=== PATIENT | male | born 1950 | race Two or more races ===

== ENCOUNTER 2024-12-01 00:48 | Inpatient (IN) | payer OTHER ==
[~2024-12-01] VITALS: Ht 177.8 cm; Wt 103.8 kg
[2024-12-01] VITALS (81 sets, daily range): BP systolic 73–150; BP diastolic 8–90; PULSE 85–143; RESP 10–34; TEMP 97–107.4; O2SAT 76–100
[2024-12-01] MEDS: SODIUM CHLORIDE 0.9% 1,000 ML IV ONE ×3 (00:04→14:44)
--- NOTE | 2024-12-01 01:11 | ED.PDOC ---
History of Present Illness HPI Comments 74 y/o M is BIBA for cardiac arrest, today. Per EMS report, staff, initially, received a call from patient's spouse after he became altered, earlier, this morning, and fell from the bed when attempted to be moved and taken to the hospital. EMS staff notes on patient having agonal breathing, hypotensive at 90 /63, and bradycardic at a rate of 58, with a blood glucose of 227, initially, on scene. En route, patient's condition was then commented to have deteriorate and had a witnessed arrest when he went into asystole at 0037. CPR was stated to have been initiated, immediately, in addition to I/O access placed along with 2x epinephrine shots administered. Upon arrival to ED at 0047, patient's total down time was stated to have been 10x minutes, with last epinephrine given at 0045. Care was resumed by ED staff. Further history cannot be obtained, due to patient's condition and absence of additional historians at time of arrival. Chief Complaint: CPR Time Seen by MD: 00:47 Reviewed Notes: Nurses Notes, Medications, Allergies Allergies: Coded Allergies: NO KNOWN ALLERGIES (Unverified , 12/01/24) Information Source: Patient Mode of Arrival: EMS Severity: Moderate Timing: Hours Duration: Since onset Prehospital treatment: None Past Medical History PAST MEDICAL HISTORY: CHF, COPD, HTN Past Medical History (Other): morbid obesity Surgical History: Denies all surgeries Family History Family History: Unknown Social History Smoker: Non-Smoker Alcohol: Denies ETOH Use Drugs: Denies Drug Use Lives In: Home Cardiovascular: reports: others (cardiac arrest) All Other Systems: Reviewed and Negative (negative unless otherwise stated above or in HPI) Physical Exam General Appearance: Obese, Severe Distress HEENT: Normal ENT Inspection, Pharynx Normal, TMs Normal Neck: Full Range of Motion, Non-Tender, Normal, Normal Inspection Respiratory: Chest Non-Tender, Lungs Clear, No Accessory Muscle Use, No Respiratory Distress, Normal Breath Sounds Cardiovascular: No Edema, No JVD, No Murmur, No Gallop, Normal Peripheral Pulses, Regular Rate/Rhythm Breast Exam: Deferred Gastrointestinal: No Organomegaly, Non Tender, No Pulsatile Mass, Normal Bowel Sounds, Soft Genitalia: Deferred Pelvic: Deferred Rectal: Deferred Extremities: No calf tenderness, Normal capillary refill, Normal inspection, Normal range of motion, Non-tender, No pedal edema Musculoskeletal : Apperance: Normal 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 Was a procedure done?: No Differential Dx Considerations may include: cardiopulmonary arrest, respiratory arrest X-Ray, Labs, Meds, VS Vital Signs Date Time Temp Pulse Resp B/P (MAP) Pulse Ox O2 Delivery O2 Flow Rate FiO2 12/01/24 01:41 131 28 162/102 (122) 100 80 12/01/24 01:07 107 12/01/24 00:55 101.5 0 0 0/0 (0) 0 Lab Test 12/01/24 01:09 12/01/24 00:50 Range/Units Blood Gas Specimen Type Arterial Blood Gas Sample Site Left radial Blood Gas Patient Temperature 37.0 Arterial Blood Date Drawn [id number] Arterial Blood pH 6.984 *L 7.350-7.450 Arterial Blood Partial Pressure CO2 80.2 *H 35.0-48.0 mmHg Arterial Blood Partial Pressure O2 411.9 *H 83.0-108.0 mmHg Arterial Blood HCO3 18.6 L 21.0-28.0 mmol/L Arterial Blood Oxygen Saturation 99.8 H 94.0-98.0 % Arterial Blood Base Excess -15.0 L -2.0-3.0 mmol/L Arterial Blood Oxyhemoglobin 96.4 94.0-98.0 % Arterial Blood Carboxyhemoglobin 2.5 H 0.5-1.5 % Arterial Blood Methemoglobin 0.9 0.0-1.5 % Amari Test Modified Blood Gas Total Hemoglobin 17.60 H 13.5-17.5 g/dL Blood Gas Set Respiration Rate 20.0 Blood Gas Modality Vent - ac FiO2 % 100.0 Blood Gas Tidal Volume 500.0 Blood Gas PEEP or CPAP 8.0 Blood Gas Critical Value Read Back Yes Blood Gas Notified Whom Dr. jessenia dominguez Blood Gas Notified Time [id number] Blood Gas Notified By Rt tita lehman White Blood Count Pending Red Blood Count Pending Hemoglobin Pending Hematocrit Pending Mean Corpuscular Volume Pending Mean Corpuscular Hemoglobin Pending Mean Corpuscular Hemoglobin Concent Pending Red Cell Distribution Width Pending Platelet Count Pending Mean Platelet Volume Pending Neutrophils (%) (Auto) Pending Lymphocytes (%) (Auto) Pending Monocytes (%) (Auto) Pending Basophils (%) (Auto) Pending Neutrophils # (Auto) Pending Lymphocytes # (Auto) Pending Monocytes # (Auto) Pending Lactic Acid Level Pending The patient was intubated in right femoral central S. NG tube was also placed. Chest x-ray is pending. See run sheet for further information. Levophed drip was placed while the patient was hydrated. Chest x-ray is pending. Patient had a elevated temperature and was given Rocephin and ofirm, with septic protocol. The patient will be admitted to the hospitalist for further evaluation and care. Time of 1ST Reevaluation: 01:17 Reevaluation 1ST: Unchanged Patient Education/Counseling: Pt Unresponsive Family Education/Counseling: No Family Present Departure 1 Departure Time of Disposition: 01:58 Impression: Primary Impression: Acute hypoxic respiratory failure Additional Impressions: COPD exacerbation CO2 retention Disposition: ADMITTED INPATIENT Admit to: ICU Condition: Critical Critical Care Note Critical Care Time?: Yes (45 min-critical care time only) Stability Stability form required: No I personally scribed for JOSE A DOMINGUEZ MD ([email or web address]) on 12/01/24 at 01:11. Electronically submitted by Hai Watt ([email or web address]). JOSE A DOMINGUEZ MD Dec 01, 2024 01:11
--- NOTE | 2024-12-01 01:29 | ECG ---
[facility] Test Date: 2024-12-01 Test Time: 01:07:51 Pat Name: EVENS HARGROVE Department: ER Room: [address] [place] [address] Gender: M Mason [employer]ender [employer]: CHELSI : 1950 Requested By: JOSE A DOMINGUEZ Order Number: [id number] Reading MD: Sky Duron Measurements Intervals [place] Rate: 107 P: 0 CA: 0 QRS: -122 QRSD: 156 T: 67 QT: 387 QTc: 517 Interpretive Statements Atrial fibrillation Right bundle branch block Electronically Signed On 12-01-2024 13:32:17 PST by Sky Duron Please click the below link to view image of tracing.
[2024-12-01 01:52] LABS: Basophils # (auto) 0.1 10 ^3/uL (0-0.2); Eosinophils # (auto) 0 10 ^3/uL (0-0.8); Lymphocytes # (auto) 1.2 10 ^3/uL (0.4-5.4); Monocytes # (auto) 1.7 10 ^3/uL (0-1.3); Nucleated Red Blood Cells % 0.5 %
[2024-12-01 01:55] LABS: Basophils % (auto) 1.1 % (0.0-2.0); Eosinophils % (auto) 0.3 % (0.0-7.0); Lymphocytes % (auto) 9.2 % (10.0-50.0); Mean Corpuscular Hemoglobin 34.8 pg (28.0-32.0); Mean Corpuscular Hgb Conc. 32.8 g/dL (32.0-36.0); Mean Corpuscular Volume 106.1 fL (80.0-100.0); Monocytes % (auto) 12.9 % (0.0-12.0); Neutrophils % (auto) 76.5 % (37.0-80.0); Platelet Count (auto) 279 10^3/uL (140-450); Red Cell Distribution Width 15.7 % (11.8-14.3); White Blood Cell 13.1 10^3/uL (4.4-10.8)
[2024-12-01] MEDS: SODIUM CHLORIDE 0.9% 2,200 ML IV ONE (02:00)
[2024-12-01] MEDS: ACETAMINOPHEN IV 1000 MG/100ML (10MG/ML) IV ONE ×2 (02:05→13:48)
--- NOTE | 2024-12-01 02:05 | RESUS ---
CODE BLUE ASSESSSMENT History of Events History of Events: 74 y/o M is BIBA for cardiac arrest, today. Per EMS report, staff, initially, received a call from patient's spouse after he became altered, earlier, this morning, and fell from the bed when attempted to be moved and taken to the hospital. EMS staff notes on patient having agonal breathing, hypotensive at 90/63, and bradycardic at a rate of 58, with a blood glucose of 227, initially, on scene. En route, patient's condition was then commented to have deteriorate and had a witnessed arrest when he went into asystole at 0037. CPR was stated to have been initiated, immediately, in addition to I/O access placed along with 2x epinephrine shots administered. Upon arrival to ED at 0047, patient's total down time was stated to have been 10x minutes, with last epinephrine given at 0045. Care was resumed by ED staff. Initial Information Date: Dec 01, 2024 Time: 00:47 Location of Arrest: ER Arrest Witnessed: Yes CPR started initial time: 00:37 CPR started by whom: EMS Pre-Hospital Care: ACLS Type of arrest: Cardiac, Respiratory, Adult, Witnessed Spontaneous Respirations: No Pulse Present: No Monitoring: ECG, Pulse Oximetry, Apnea, Telemetry Crash Cart Opened and Supplies: Yes Airway Ventilation Breathing at Onset: Apneic O2 Sat by Pulse Oximetry: 0 Oxygen Delivery Method: Ambu-Bag Time of first Assisted Ventila: 00:48 Artificial Ventilation: Bag/Endo tube Intubation Size: 8.0 cuffed Intubation Attempts: 1 Intubated orally: Yes Intubated Nasaly: No Cricoid pressure done: No CO2 indicator used: Yes Confirmation: Auscultation, Exhaled CO2 Suctioning (Oral/Tracheal): No Circulation Circulation : Time: 00:47 Pulse Rate (adult): 0 Blood Pressure Systolic: 0 Blood Pressure Diastolic: 0 Temperature (Fahrenheit): 101.5 Procedure - IV Procedure - IV #1: IV start time: 00:48 IV Side: Left IV Location: Forearm Anterior IV Catheter Type: Saline Lock IV Placed: In Hospital IV Gauge: 18 IV Line Care: Saline Flush Procedure - IV #2: IV start time: 00:49 IV Side: Right IV Location: Wrist IV Catheter Type: Saline Lock IV Gauge: 20 IV Line Care: Saline Flush Procedure - Intraosseous Site of Intraosseous: Tibia selina-medial Intraosseous inserted by: BY EMS Medications & Response Medications and Responses : Medication Time: 00:49 ADULT Medications Given ADULT: Epinephrine 1 mg Route of Administration: IV Heart Rate: 0 EKG Rhythm: PEA Blood Pressure Systolic: 0 Blood Pressure Diastolic: 0 Respiratory Rate: 0 O2 Sat by Pulse Oximetry: 0 EKG Rhythm: PEA Comment PULSE CHECK AT 0052 ROSC PT GIVEN NA BICARB 1 AMP AND CALCIUM CHLORIDE 1 AMP VS 163/94 HR 149 SAO2 97 Pacing Pacer Pads Applied and Pacing: Yes Nurses Notes Iván Coma Scale Eye Opening: None (1) Iván Coma Scale Verbal: None (1) [place] Coma Scale Motor: None (1) Pupil Reaction: Non Reactive Bedside Blood Glucose: 256 EKG Rhythm: Sinus Tachycardia Time Code Ended Time Code Ended: 00:52 Post Arrest Status: Ventilated Outcome of code: Successful Code Team Present: KHLOE PAPPAS RN HS, ROCÍO AUDIT ASSOCIATE, VÍCTOR RN, AUDREY RN, WILVER RN, ROBINSON ERT, NEGRO ERT, MIKE RT, LIZZETH RT Post Resuscitation Neurologica Pupil Size: 3 ROSC Pt Meets Criteria for Therapeu: Yes (0rdered at 0223) Therapeutic Hyperthermia Start: No KHLOE RICK Dec 01, 2024 02:05
[2024-12-01 02:10] LABS: Lactic Acid w/Reflex 11.4 mmol/L (0.4-2.0)
[2024-12-01] MEDS: VANCOMYCIN 1GM/250ML KIT 250 ML IV ONE ×2 (02:18→06:19)
[2024-12-01] MEDS: PIPERACILLIN-TAZOB 2.25GM 50 ML IV ONE (02:18)
[2024-12-01 02:21] LABS: Alanine Aminotransferase 26 U/L (7-40); Anion Gap 14 (5-15); Bilirubin, Total 0.6 mg/dL (0.2-1.0); Blood Urea Nitrogen 9 mg/dL (9-23); Calcium 9.4 mg/dL (8.7-10.4); Carbon Dioxide 21 mmol/L (20-31); Potassium 4.6 mmol/L (3.5-5.1); Total Protein 6.8 g/dL (5.7-8.2)
[2024-12-01 02:29] LABS: Urine Amorphous Crystal FEW /hpf (None Seen); Urine Bacteria FEW /hpf (None Seen); Urine Blood 2+ /uL (Negative); Urine Clarity Turbid (Clear); Urine Color Light-Orange (Yellow); Urine Hyaline Cast FEW /lpf (0 - 2); Urine Protein, UAD 3+ (Negative); Urine Specific Gravity 1.013 (1.001-1.035); Urine Sperm PRESENT /hpf (None Seen); Urine Squamous Epithelial Cell FEW /hpf (<5); Urine Urobilinogen Normal (Negative); Urine WBC 62 /HPF (0-3)
[2024-12-01 02:29] LABS: Alkaline Phosphatase 132 U/L (46-116); Aspartate Aminotransferase 45 U/L (13-40); Chloride 94 mmol/L (98-107); Glucose 220 mg/dL (74-106); Sodium 129 mmol/L (136-145)
[2024-12-01] MEDS: IOHEXOL 350 MG/ML 100ML IJ ONE (02:35)
[2024-12-01] MEDS: MIDAZOLAM DRIP 50 mg/50mL 50 ML IV ONE (02:42)
[2024-12-01] MEDS: MIDAZOLAM DRIP 50 mg/50mL 50 ML IV SCH (02:43)
[2024-12-01 03:08] LABS: Base Excess -6.6 mmol/L (-2.0-3.0)
[2024-12-01] MEDS: SODIUM BICARB 8.4% 50Meq/50ml SYR Vial IV ONE (03:12)
--- NOTE | 2024-12-01 03:20 | DVH ---
CT HEAD WITHOUT CONTRAST INDICATION: resp arrest COMPARISON: None TECHNIQUE: CT of the head without intravenous contrast. RADIATION DOSE: CTDIvol: 69.24 mGy, DLP: 3401.41 mGy*cm FINDINGS: There is no evidence of acute intracranial hemorrhage, extra-axial collection, mass effect, midline s hift, herniation or hydrocephalus. The ventricles, sulci and cisterns are age appropriate. The oh -white differentiation is intact. Patchy mucosal thickening and opacities noted within visualized pa ranasal sinuses. The surrounding soft tissues and osseous structures are unremarkable. Endotracheal and orogastric catheters are incompletely imaged. IMPRESSION: 1. No evidence of acute intracranial hemorrhage, mass effect or hydrocephalus.
--- NOTE | 2024-12-01 04:24 | DVH ---
CHEST RADIOGRAPH Indication: POST INTUBATION Technique: Single frontal view of the chest was obtained Comparison: None FINDINGS: Lines and Tubes: Endotracheal tube terminates 7.0 cm above the tristin. The enteric tube courses below the left hemidiaphragm and the tip extends outside the field of view. Lungs: Hazy bilateral opacities noted. Pleura: No effusion. No pneumothorax. Cardiomediastinal contours: Unremarkable Bones: No acute osseous abnormality. IMPRESSION: 1. Hazy bilateral opacities which may reflect pneumonia or edema.
[2024-12-01] MEDS: dilTIAZem 25 MG/5 ML VIAL IV ONE (04:27)
--- NOTE | 2024-12-01 05:01 | DVH ---
Exam: CT CT CHEST/AB/PL W CON- IV ONLY History: ANGIO CHEST WITH ABD PEL // RESPIRATORY ARREST Comparison Study: None available at time of dictation. Technique: Multidetector CT of the chest, abdomen and pelvis was performed from lower neck to pubic s ymphysis. Intravenous contrast was administered during this examination. Axial, coronal and sagittal multiplanar reformats were performed by the technologist on a separate workstation. Radiation Dose Information: CT Dose: CTDI volume is 25 mGy. Dose-length product is 250 mGy*cm Findings: Lower neck: ENDOTRACHEAL TUBE TIP ABOVE THE REZA. Lungs: BIBASILAR ATELECTASIS. Tree-in-bud nodular opacities throughout the lungs, which could be seco ndary to infectious or inflammatory process. Heart/Vascular Structures: Lymph Nodes: No adenopathy Pleura: Trace left pneumothorax. Liver: The liver is normal in size. No focal lesions. Normal hepatic vascular enhancement. Gallbladder and Biliary Tree: Unremarkable Spleen: Unremarkable Pancreas: The pancreas is normal in appearance without focal lesions or abnormal enhancement. Adrenal Glands: Unremarkable Kidneys: Kidneys demonstrate normal symmetric enhancement without focal lesions, calculi or hydroneph rosis. Bladder: Unremarkable Bowel: Nasogastric tube tip in the stomach. Small bowel and colon are normal in caliber and distribut ion. The appendix is not visualized; however, no secondary findings of acute appendicitis identified . Ascites: Absent Lymphadenopathy: No mesenteric, retroperitoneal or periportal lymphadenopathy. Abdominal Wall and Mesentery: Abdominal aortic aneurysm infrarenal measuring 5 cm. Right common femor al central venous catheter present. Vasculature: The visualized abdominal aorta is normal in size and caliber. Abdominal and pelvic vess els demonstrate normal enhancement. Pelvic Organs: Unremarkable Musculoskeletal: Multiple rib fractures are noted involving the left 2nd 3rd 4th ribs. IMPRESSION: Abdominal aortic aneurysm infrarenal measuring 5 cm. Tree-in-bud nodular opacities throughout the lungs, which could be secondary to infectious or inflamm atory process. Trace left pneumothorax. Multiple rib fractures are noted involving the left 2nd 3rd 4th ribs. Critical Result: Pneumothorax Findings discussed with JOSE A DOMINGUEZ at 12/01/2024 04:57 AM, and acknowledged receipt and understan ding of the findings. .. All CT scans at this medical facility are performed using dose modulation techniques as appropriate t o a performed exam including the following: Automated exposure control was utilized; adjustment of th e MA and/or KV according to patient size; and use of iterative reconstruction technique.
[2024-12-01] MEDS ORDERED: VANCOMYCIN PER PHARMACY 0 MG IV SCH (06:00)
[2024-12-01] MEDS ORDERED: METOPROLOL TARTRATE 1MG/1ML-5ML VIAL IV PRN (06:15)
[2024-12-01] MEDS: methylPREDNISolone SOD SUCC 40 MG/ML VL IV SCH (06:20)
[2024-12-01] MEDS: PANTOPRAZOLE 40 MG/10 ML VIAL INJ IV ONE (06:21)
[2024-12-01 06:22] LABS: Eosinophils # (auto) 0 10 ^3/uL (0-0.8); Hemoglobin 18.1 g/dL (13.5-17.5); Lymphocytes # (auto) 0.5 10 ^3/uL (0.4-5.4); Neutrophils # (auto) 17.1 10 ^3/uL (1.6-8.6)
[2024-12-01 06:27] LABS: Basophils # (auto) 0.2 10 ^3/uL (0-0.2); Basophils % (auto) 1.2 % (0.0-2.0); Lymphocytes % (auto) 2.4 % (10.0-50.0); Mean Corpuscular Hgb Conc. 33.5 g/dL (32.0-36.0); Mean Corpuscular Volume 101.6 fL (80.0-100.0); Monocytes # (auto) 1.9 10 ^3/uL (0-1.3); Monocytes % (auto) 9.8 % (0.0-12.0); Neutrophils % (auto) 86.6 % (37.0-80.0); Platelet Count (auto) 290 10^3/uL (140-450); Red Blood Cells 5.32 10^6/uL (4.5-5.90); Red Cell Distribution Width 15.1 % (11.8-14.3); White Blood Cell 19.7 10^3/uL (4.4-10.8)
[2024-12-01 06:39] LABS: INR 1.35 (0.9-1.15); Lactic Acid w/Reflex 5.4 mmol/L (0.4-2.0); Prothrombin Time 13.9 sec (9.3-11.8)
--- NOTE | 2024-12-01 06:40 | DVHHP2 ---
Admitting Diagnosis: Cardiac Arrest, Acute respiratory failure with hypercapnea, Pneumonia, GI Bleed, metabolic encephalopathy History of Present Illness History Source: RN Notes, MD Notes Exam Limitations: Clinical condition HPI Mr. Maxim Mcintosh is a 74 year old male who presents with status post cardiac arrest en route in ambulance, yesterday. Limited HPI due to patient clinical condition, Per ED notes, "Per EMS report, staff, initially, received a call from patient's spouse after he became altered, earlier, this morning, and fell from the bed when attempted to be moved and taken to the hospital. EMS staff notes on patient having agonal breathing, hypotensive at 90/63, and bradycardic at a rate of 58, with a blood glucose of 227, initially, on scene. En route, patient's condition was then commented to have deteriorate and had a witnessed arrest when he went into asystole at 0037. CPR was stated to have been initiated, immediately, in addition to I/O access placed along with 2x epinephrine shots administered. Upon arrival to ED at 0047, patient's total down time was stated to have been 10x minutes, with last epinephrine given at 0045. Care was resumed by ED staff." Patient admitted for further evaluation. Past Medical History Cardiac: No pertinent Hx Pulmonary: COPD Central Nervous System: No pertinent Hx GI: No pertinent Hx Hemotology/Oncology: No pertinent Hx Hepatobiliary: No pertinent Hx Psychiatric: No pertinent Hx Musculoskeletal: No pertinent Hx Rheumotologic: No pertinent Hx Infectious Disease: No peritnent Hx ENT: No pertinent Hx Renal/: No pertinent Hx Endocrine: No pertinent Hx Dermatology: No pertinent Hx Others morbid obesity, AAA per CT scan Review of Systems Comments unable to perform ROS due to patient critical clinical condition H&P Exam Vital Signs Vital Signs Date Time Temp Pulse Resp B/P (MAP) Pulse Ox O2 Delivery O2 Flow Rate FiO2 12/01/24 04:15 99.3 147 29 142/91 (108) 95 99.3 12/01/24 03:52 40 12/01/24 02:05 Ambu-Bag General Appeara: Other (Ill appearing , morbid obesity, intubated ) Head Exam: Normal inspection Neck Exam: Normal inspection Eye Exam: bilateral eye Abnormal pupil (fixed +3 ) Ear Exam: bilateral ear Auricle normal Nasal Exam: Normal inspection, Other (NGT ) Mouth: Normal Inspection (ETT tube) Pulmonary/Respiratory: Wheezing, Other (intubated) Cardiovascular/Chest: Tachycardia, Irregularly irregular Peripheral Pulses: 2+ dorsalis pedis (R), 2+ dorsalis pedis (L), 2+ Radial (R), 2+ Radial (L) Abdominal Exam: Other (distended , hypoactive bowel sounds, NGT output dark red ) 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: Other (pupils fixed +3 , intubated on no sedation) Neuro/Mental St: Unresponsive Appearance: Other (ill appearing) Eye contact/ Speech: Other (intubated , unresponsive ) Thoughts/Psych: Other (intubated) Skin Exam: Normal inspection, Normal color, Warm/dry Labs/Xrays Labs Test 12/01/24 05:59 12/01/24 03:02 12/01/24 01:52 12/01/24 01:50 Range/Units Blood Gas Specimen Type Arterial Blood Gas Sample Site Left radial Blood Gas Patient Temperature 37.0 Arterial Blood Date Drawn [id number] Arterial Blood pH 7.167 *L 7.350-7.450 Arterial Blood Partial Pressure CO2 66.8 *H 35.0-48.0 mmHg Arterial Blood Partial Pressure O2 292.6 H 83.0-108.0 mmHg Arterial Blood HCO3 23.7 21.0-28.0 mmol/L Arterial Blood Oxygen Saturation 99.8 H 94.0-98.0 % Arterial Blood Base Excess -6.6 L -2.0-3.0 mmol/L Arterial Blood Oxyhemoglobin 96.8 94.0-98.0 % Arterial Blood Carboxyhemoglobin 2.1 H 0.5-1.5 % Arterial Blood Methemoglobin 0.9 0.0-1.5 % Amari Test Modified Blood Gas Total Hemoglobin 17.60 H 13.5-17.5 g/dL Blood Gas Set Respiration Rate 28.0 Blood Gas Modality Vent - ac FiO2 % 80.0 Blood Gas Tidal Volume 500.0 Blood Gas PEEP or CPAP 5.0 Blood Gas Critical Value Read Back Yes Blood Gas Notified Whom Dr. jessenia estrada Blood Gas Notified Time [id number] Blood Gas Notified By Rt tita lehman Total Bilirubin 0.6 0.2-1.0 mg/dL Aspartate Amino Transferase (AST) 45 H 13-40 U/L Alanine Aminotransferase (ALT) 26 7-40 U/L Alkaline Phosphatase 132 H 46-116 U/L Total Protein 6.8 5.7-8.2 g/dL Albumin 4.0 3.2-4.8 g/dL Urine Color Light-orange Yellow Urine Clarity Turbid H Clear Urine pH 6.0 5.0-9.0 Urine Specific [place] 1.013 1.001-1.035 Urine Protein 3+ H Negative Urine Ketones 1+ H Negative Urine Blood 2+ H Negative /uL Urine Nitrite Negative Negative Urine Bilirubin Negative Negative Urine Urobilinogen Normal Negative mg/dL Urine Leukocyte Esterase Negative Negative /uL Urine RBC 20 0 - 3 /hpf Urine Microscopic WBC 62 H 0-3 /HPF Urine Squamous Epithelial Cells Few <5 /hpf Urine Amorphous Crystals Few None Seen /hpf Urine Bacteria Few H None Seen /hpf Urine Hyaline Casts Few 0 - 2 /lpf Urine Sperm Present None Seen /hpf Urine Glucose Trace Normal mg/dL Test 12/01/24 00:50 Range/Units Eosinophils (%) (Auto) 0.3 0.0-7.0 % Eosinophils # (Auto) 0 0-0.8 10 ^3/uL Basophils # (Auto) 0.1 0-0.2 10 ^3/uL Nucleated Red Blood Cells 0.5 % Assessment/Plan Problem List: (1) Acute respiratory failure with hypercapnia (2) Pneumonia (3) Pneumothorax (4) AAA (abdominal aortic aneurysm) (5) New onset a-fib (6) Elevated troponin Plan This is a 74 yo male with known history of COPD who presents to the hospital status post cardiac arrest with acute respiratory failure, CPR was performed en route to the hospital and patient was intubated. Patient found to have 1. Acute respiratory failure with hypercapnea 2. Pneumonia 3. trace pneumothorax 4. Metabolic encephalopathy 5. GI Bleed 6. Elevated troponin 7. Atrial fibrillation with RVR 8. AAA measuring 5.0 cm 9. Lactic acidosis 10, Fractured ribs Plan Admit ICU Pulmonology consultation, ABG, CXR, IV antibiotics, Duo Neb Treatment, IV steroid, sputum culture Neurology consultation Gastroenterology consultation, Protonix drip, stool occult blood, NGT LIS Cardiology consultation , 2D echocardiogram, serial troponin levels IV fluids NS serial lactic acid levels, Blood cultures x2, urine culture monitor H&H levels, CBC, BMP Discussed care plan with patient nurse Radha LING. Discussed assessment and care plan with supervising MD. Patient is seen and evaluated by me in the afternoon and discussed with family at bedside regarding care plan. Patient is seen and evaluated and admitted by nurse practitioner manager call. I agree with her evaluation, documentation, assessment and care plan as outlined. Plan discussed with: Other Code Visit Code Visit Total Time (mins): 45 MARK SANDERS Dec 01, 2024 06:40 NIGHAT BOX MD Dec 03, 2024 10:49
[2024-12-01] MEDS: IPRATROPIUM BROM 0.5 MG/2.5ML INH SOL NEB SCH (07:00)
[2024-12-01 07:03] LABS: Base Excess 0.6 mmol/L (-2.0-3.0)
[2024-12-01 07:26] LABS: Potassium 3.8 mmol/L (3.5-5.1)
[2024-12-01 07:27] LABS: Anion Gap 15 (5-15); Carbon Dioxide 23 mmol/L (20-31)
[2024-12-01 07:28] LABS: Calcium 8.7 mg/dL (8.7-10.4)
[2024-12-01 07:32] LABS: BUN/Creatinine Ratio 11.2 (10.0-20.0); Blood Urea Nitrogen 10 mg/dL (9-23)
[2024-12-01 07:51] LABS: Chloride 95 mmol/L (98-107); Glucose 216 mg/dL (74-106); Sodium 133 mmol/L (136-145)
[2024-12-01] MEDS: PANTOPRAZOLE 80 MG in SODIUM CHL 0.9% 100 ML IV ONE (08:09)
[2024-12-01] MEDS: ACETAMINOPHEN 650 MG RECT SUPP PR PRN (08:14)
[2024-12-01] MEDS: PANTOPRAZOLE 40mg/50ML NS AE 50 ML IV ONE (09:10)
[2024-12-01] MEDS: PIPERACILLIN-TAZOB 3.375GM 100 ML IV SCH (11:09)
[2024-12-01] MEDS ORDERED: ACETAMINOPHEN 650 mg PER 20.3 mL UD PO PRN (11:30)
[2024-12-01] MEDS: ACETAMINOPHEN IV 100 ML IV ONE (11:44)
[2024-12-01] MEDS: IBUPROFEN 100MG/5ML ORAL SUSP 100 MG/5 ML UD GT PRN (11:44)
[2024-12-01 12:05] LABS: Hematocrit 53.6 % (41.0-53.0); Hemoglobin 17.9 g/dL (13.5-17.5)
--- NOTE | 2024-12-01 12:21 | DVHINCON2 ---
Date Seen: Dec 01, 2024 Referring Physician KORIN Ortega Reason for Consultation Cardiac arrest History of Present Illness This is a 74-year-old man who presented to the emergency room via EMS with a chief complaint cardiopulmonary arrest earlier today. At time of assessment, the patient was found chemically sedated, mechanically ventilated, and off vasopressors. Information obtained from records which indicate the patient's called 911 reported ALOC with EMS arriving and found in the patient with agonal breathing and hypotensive with a systolic blood pressure in the 90s mmHg, HR of 50s bpm, and BGL in the 200s ng/dL. En route to the hospital the patient went into asystole with ACLS protocol initiated including CPR and two rounds of epinephrine. There is a reported total down time of 17 minutes. Upon arrival to the emergency room the patient underwent a 12 lead electrocardiogram elevated atrial fibrillation rhythm with rapid ventricular rate and an associated right bundle branch block. Troponin levels are trending up with latest at 115 ng/L. Significant medical history includes unspecified atrial fibrillation on Xarelto therapy, hypertension, dyslipidemia, thyroid disease, paf-cfrdqfd-ukklsvend diabetes mellitus, COPD, and morbid obesity. Past Medical History Past medical history reviewed. No other significant than mentioned above. Past Surgical History Unknown past surgical history. Family History Unknown family history. Social History Unknown Social history. Allergies: Coded Allergies: NO KNOWN ALLERGIES (Unverified , 12/01/24) Home Meds Home medications reviewed. Current Medications Current Medications Medications (Trade) Dose Ordered Sig/Germania Route PRN Reason Start Time Stop Time Status Last Admin Midazolam HCl 50 ml @ 1 mls/hr Q24H IV 12/01/24 02:45 12/01/24 09:05 Piperacillin Sod/ Tazobactam Sod 100 ml @ 100 mls/hr Q8H IV 12/01/24 10:00 12/01/24 11:09 Vancomycin HCl 0 ml @ 0 mls/hr UD IV 12/01/24 06:00 Ipratropium [place] (Atrovent Medneb) 0.5 mg Q6HR NEB 12/01/24 06:00 12/01/24 11:45 Methylprednisolone Sodium Succinate (Solu Medrol) 40 mg Q8HR IV 12/01/24 06:00 12/01/24 06:20 Metoprolol Tartrate (Lopressor) 2.5 mg Q6HPRN PRN IV HEART RATE GREATER THAN 140 12/01/24 06:15 Acetaminophen (Tylenol Suppository) 650 mg Q6HPRN PRN [place] TEMP GREATER THAN 100.4 12/01/24 06:45 12/01/24 08:14 Vancomycin HCl 250 ml @ 200 mls/hr Q12H IV 12/01/24 18:00 Acetaminophen (Tylenol Solution Oral) 650 mg Q4HP PRN PO PAIN SCALE 1-3 OR TEMP>100.4 12/01/24 11:30 Ibuprofen (MOTRIN 100MG/5 mL ORAL SUSP) 800 mg Q6HP PRN GT TEMP GREATER THAN 101 12/01/24 11:45 12/01/24 11:44 Review of Systems Constitutional: No symptom reported Ears, Nose, & Throat: No symptom reported Eyes: No symptom reported Neurological: ALOC Pulmonary/Respiratory: Agonal breathing Cardiovascular: Cardiopulmonary arrest Gastrointestinal: No symptom reported Genitourinary: No symptom reported Musculoskeletal: No symptom reported Skin: No symptom reported Psychiatric: No symptom reported Endocrine: No symptom reported Hemotologic/Lymphatic: No symptom reported Vital Signs Vital Signs Date Time Temp Pulse Resp B/P (MAP) Pulse Ox O2 Delivery O2 Flow Rate FiO2 12/01/24 11:44 106.0 12/01/24 10:00 117 16 143/85 (104) 96 12/01/24 09:44 50 12/01/24 02:05 Ambu-Bag Physical Exam General Appearance: Off vasopressors. Mechanically ventilated 100% FiO2. Chemically sedated Head Exam: Normal inspection Neck Exam: Normal inspection.Normal alignment Pulmonary/Respiratory: Coarse bilateral breath sounds. Mechanically ventilated 100% FiO2 Cardiovascular/Chest: Irregularly irregular rate and rhythm. AFib with RVR. No murmurs. No JVD. Peripheral Pulses: 2+ Radial (R). 2+ Radial (L). 2+ Pedal (R). 2+ Pedal (L) Abdominal Exam: Normal bowel sounds. Soft. Nontender. No hepatospenomegaly. No masses Ankle Exam: Positive ankle edema Lower extremities: Positive lower extremity edema Neuro/Mental Status: Fixed dilated pupils. Negative cough reflex. Tremors present Thoughts/Psych: Unable to assess at this time Appearance: Tremors present. Pale Skin Exam: Pale Labs/Diagnostic Data Labs Test 12/01/24 11:40 12/01/24 06:54 12/01/24 05:59 12/01/24 01:52 Range/Units Blood Gas Specimen Type Arterial Blood Gas Sample Site Left radial Blood Gas Patient Temperature 37.0 Arterial Blood Date Drawn [id number] Arterial Blood pH 7.296 L 7.350-7.450 Arterial Blood Partial Pressure CO2 61.6 *H 35.0-48.0 mmHg Arterial Blood Partial Pressure O2 64.1 L 83.0-108.0 mmHg Arterial Blood HCO3 29.4 H 21.0-28.0 mmol/L Arterial Blood Oxygen Saturation 90.5 L 94.0-98.0 % Arterial Blood Base Excess 0.6 -2.0-3.0 mmol/L Arterial Blood Oxyhemoglobin 89.1 L 94.0-98.0 % Arterial Blood Carboxyhemoglobin 0.6 0.5-1.5 % Arterial Blood Methemoglobin 0.9 0.0-1.5 % Amari Test Modified Blood Gas Total Hemoglobin 19.80 *H 13.5-17.5 g/dL Blood Gas Set Respiration Rate 28.0 Blood Gas Modality Vent - ac FiO2 % 40.0 Blood Gas Tidal Volume 550.0 Blood Gas PEEP or CPAP 5.0 Blood Gas Critical Value Read Back Yes Blood Gas Notified Whom Soren vidal. Blood Gas Notified Time [id number] Blood Gas Notified By Lashae houser White Blood Count 19.7 #H 4.4-10.8 10^3/uL Red Blood Count 5.32 4.5-5.90 10^6/uL Mean Corpuscular Volume 101.6 #H 80.0-100.0 fL Mean Corpuscular Hemoglobin 34.0 H 28.0-32.0 pg Mean Corpuscular Hemoglobin Concent 33.5 32.0-36.0 g/dL Red Cell Distribution Width 15.1 H 11.8-14.3 % Platelet Count 290 140-450 10^3/uL Mean Platelet Volume 8.7 6.9-10.8 fL Neutrophils (%) (Auto) 86.6 H 37.0-80.0 % Lymphocytes (%) (Auto) 2.4 L 10.0-50.0 % Monocytes (%) (Auto) 9.8 0.0-12.0 % Eosinophils (%) (Auto) 0.0 0.0-7.0 % Basophils (%) (Auto) 1.2 0.0-2.0 % Neutrophils # (Auto) 17.1 H 1.6-8.6 10 ^3/uL Lymphocytes # (Auto) 0.5 0.4-5.4 10 ^3/uL Monocytes # (Auto) 1.9 H 0-1.3 10 ^3/uL Eosinophils # (Auto) 0 0-0.8 10 ^3/uL Basophils # (Auto) 0.2 0-0.2 10 ^3/uL Nucleated Red Blood Cells 0.0 % Prothrombin Time 13.9 H 9.3-11.8 sec Prothrombin Time INR 1.35 H 0.9-1.15 Sodium Level 133 L 136-145 mmol/L Potassium Level 3.8 3.5-5.1 mmol/L Chloride Level 95 L 98-107 mmol/L Carbon Dioxide Level 23 20-31 mmol/L Anion Gap 15 5-15 Blood Urea Nitrogen 10 9-23 mg/dL Creatinine 0.89 0.700-1.30 mg/dL Glomerular Filtration Rate Calc 90 >90 mL/min BUN/Creatinine Ratio 11.2 10.0-20.0 Serum Glucose 216 H 74-106 mg/dL Calcium Level 8.7 8.7-10.4 mg/dL B-Type Natriuretic Peptide 93.41 0-100 pg/mL Total Bilirubin 0.6 0.2-1.0 mg/dL Aspartate Amino Transferase (AST) 45 H 13-40 U/L Alanine Aminotransferase (ALT) 26 7-40 U/L Alkaline Phosphatase 132 H 46-116 U/L Total Protein 6.8 5.7-8.2 g/dL Albumin 4.0 3.2-4.8 g/dL Test 12/01/24 01:50 Range/Units Urine Color Light-orange Yellow Urine Clarity Turbid H Clear Urine pH 6.0 5.0-9.0 Urine Specific [place] 1.013 1.001-1.035 Urine Protein 3+ H Negative Urine Ketones 1+ H Negative Urine Blood 2+ H Negative /uL Urine Nitrite Negative Negative Urine Bilirubin Negative Negative Urine Urobilinogen Normal Negative mg/dL Urine Leukocyte Esterase Negative Negative /uL Urine RBC 20 0 - 3 /hpf Urine Microscopic WBC 62 H 0-3 /HPF Urine Squamous Epithelial Cells Few <5 /hpf Urine Amorphous Crystals Few None Seen /hpf Urine Bacteria Few H None Seen /hpf Urine Hyaline Casts Few 0 - 2 /lpf Urine Sperm Present None Seen /hpf Urine Glucose Trace Normal mg/dL Assessment Sepsis with pneumonia Cardiopulmonary arrest with ROSC Atrial fibrillation with rapid ventricular rate Highly suspected anoxic brain injury Upper GI bleed Infrarenal AAA measuring 5 cm Left-sided pneumothorax Reviewed obesity Plan/Recommendation (Dr. Duron) The patient with AFib with a RVR presents with an upper GI bleed, highly suspected neurological insult, and overall hemodynamic derangement. We will continue further cardiac evaluation with a transthoracic echocardiogram to evaluate cardiac function. In the meantime, initiate amiodarone drip per pharmacy protocol. Avoid anticoagulation therapy. Monitor ECG changes closely and notify. Continue conservative management given overall critical prognosis. Consider goals of care. Continue neurological, pulmonology, and GI recommendations. Thank you for allowing us to participate in this patient's care. Please call if you have any questions or concerns. Critical care time: 50 min. This medical document was created using an electronic medical record system with voice recognition software and computerized dictation system. Although this document has been carefully reviewed, there might still be some phonetic and typographical errors. Occasio nal wrong-word or ``sound-alike substitutions may have occurred due to the inherent limitations of voice recognition software. These areas are purely typographical due to imperfections of the software programs and do not reflect any compromise in the patient's medical care. Please read the chart carefully and recognize, using context, where these substitutions have occurred. Plan discussed with: Son, Other NYHA Physical activity limitations: NA Date of Service: Dec 01, 2024 Billing Provider: DARLING BONILLA Cardiology Common Codes: 31517-NHOVIGSR CARE 30-74 MIN DARLING BONILLA Dec 01, 2024 12:21
[2024-12-01] MEDS: AMIODARONE BOLUS KIT 100 ML IV ONE ×2 (12:35→12:52)
[2024-12-01] MEDS: AMIODARONE 360mg/200mL PREMIX 200 ML IV ONE (12:50)
[2024-12-01] MEDS: NOREPINEPHRINE 8 MG/250ML KIT 250 ML IV SCH (15:00)
[2024-12-01] MEDS: NOREPINEPHRINE 8 MG/250ML KIT 250 ML IV ONE (15:07)
[2024-12-01] MEDS: ACCU-CHEK COMFORT CURVE STRIP VI SCH (18:00)
[2024-12-01 18:22] LABS: Hematocrit 51.6 % (41.0-53.0); Hemoglobin 17.1 g/dL (13.5-17.5)
[2024-12-01] MEDS: D5W/SOD CHLO 0.9% 1,000 ML IV SCH (19:03)
[2024-12-01] MEDS: VANCOMYCIN 1.25GM/250ML 250 ML IV SCH (19:04)
[2024-12-01] MEDS: AMIODARONE 360mg/200mL PREMIX 200 ML IV SCH (19:09)
--- NOTE | 2024-12-01 20:28 | DVHINCON2 ---
Date of service: Dec 01, [address] Saenz Reason for Consultation Acute hypoxic/hypercarbic respiratory failure History of Present Illness A 74-year-old man who presents today status post cardiac arrest en route in ambulance. Limited HPI due to patient's clinical condition. Per ED notes, patient's spouse called after patient was found altered earlier this AM and fell from the bed when he was attempted to be moved and taken to the hospital. EMS staff notes patient having agonal breathing, hypotensive at 90/63, and bradycardic at a rate of 58, with a blood glucose of 227 initially on scene. En route, patient's condition then deteriorated and had a witnessed arrest when he went into asystole at 0037. CPR was initiated, ROSC was achieved. Patient was admitted for further care and pulmonary consultation is requested for evaluation and management due to the above findings. Review of Systems: Unable to obtain d/t intubated status. Past Medical History: Atrial fibrillation on Xarelto therapy, hypertension, dyslipidemia, thyroid disease, eej-kvjokza-rjlqmxxza diabetes mellitus, COPD, and morbid obesity. Past Surgical History: Unknown. Medications: Reviewed. Allergies: No known drug allergies. Family History: Unknown. Social History: Unknown. Allergies: Coded Allergies: NO KNOWN ALLERGIES (Unverified , 12/01/24) Current Medications Current Medications Medications (Trade) Dose Ordered Sig/Germania Route PRN Reason Start Time Stop Time Status Last Admin Midazolam HCl 50 ml @ 1 mls/hr Q24H IV 12/01/24 02:45 12/01/24 09:05 Piperacillin Sod/ Tazobactam Sod 100 ml @ 100 mls/hr Q8H IV 12/01/24 10:00 12/01/24 11:09 Vancomycin HCl 0 ml @ 0 mls/hr UD IV 12/01/24 06:00 Ipratropium [place] (Atrovent Medneb) 0.5 mg Q6HR NEB 12/01/24 06:00 12/01/24 18:41 Methylprednisolone Sodium Succinate (Solu Medrol) 40 mg Q8HR IV 12/01/24 06:00 12/01/24 14:23 Metoprolol Tartrate (Lopressor) 2.5 mg Q6HPRN PRN IV HEART RATE GREATER THAN 140 12/01/24 06:15 Acetaminophen (Tylenol Suppository) 650 mg Q6HPRN PRN [place] TEMP GREATER THAN 100.4 12/01/24 06:45 12/01/24 19:46 Vancomycin HCl 250 ml @ 200 mls/hr Q12H IV 12/01/24 18:00 12/01/24 19:04 Acetaminophen (Tylenol Solution Oral) 650 mg Q4HP PRN PO PAIN SCALE 1-3 OR TEMP>100.4 12/01/24 11:30 Ibuprofen (MOTRIN 100MG/5 mL ORAL SUSP) 800 mg Q6HP PRN GT TEMP GREATER THAN 101 12/01/24 11:45 12/01/24 11:44 Dextrose/Sodium Chloride 1,000 ml @ 125 mls/hr Q8H IV 12/01/24 14:00 12/01/24 19:03 Pantoprazole Sodium (Protonix) 40 mg BID IV 12/01/24 22:00 Diagnostic Test (Pha) (Accu-Chek Comfort Curve T) 1 strip Q6HR 12/01/24 18:00 12/01/24 18:00 Fluconazole 100 ml @ 100 mls/hr 10,11 IV 12/01/24 20:30 UNV Vital Signs Vital Signs Date Time Temp Pulse Resp B/P (MAP) Pulse Ox O2 Delivery O2 Flow Rate FiO2 12/01/24 20:00 112 28 115/74 (88) 99 12/01/24 19:46 101.5 12/01/24 18:41 70 12/01/24 07:55 Mechanical Ventilator+ Physical Exam Gen.: Patient lying in bed in medical ICU. Sedated, intubated on mechanical ventilator. Head: Normocephalic, atraumatic. Eyes: PERRLA. Ears: Normal external anatomy. Throat: Endotracheal tube and orogastric tube in place. Neck: Supple, trachea midline. Chest: Transmitted breath sounds bilaterally. Decreased air entry bilaterally. No wheezing. Bibasilar crackles. Cardiovascular: Positive S1, positive S2. Regular rate and rhythm. Abdomen: Positive bowel sounds in all 4 quadrants. Soft, nontender, nondistended. : [place] in place. Normal external genitalia. Rectal: Deferred. Skin: Warm, dry. Intact. Extremities: 2+ radial pulses bilaterally. No lower extremity edema. Neuro: Sedated. Labs/Diagnostic Data Labs Test 12/01/24 18:05 12/01/24 17:52 12/01/24 11:40 12/01/24 06:54 Range/Units Hemoglobin 17.1 13.5-17.5 g/dL Hematocrit 51.6 41.0-53.0 % Lactic Acid Level 1.7 0.4-2.0 mmol/L POC Glucose 128 H 70-106 mg/dl Troponin I High Sensitivity 244 *H </=54 ng/L Blood Gas Specimen Type Arterial Blood Gas Sample Site Left radial Blood Gas Patient Temperature 37.0 Arterial Blood Date Drawn [id number] Arterial Blood pH 7.296 L 7.350-7.450 Arterial Blood Partial Pressure CO2 61.6 *H 35.0-48.0 mmHg Arterial Blood Partial Pressure O2 64.1 L 83.0-108.0 mmHg Arterial Blood HCO3 29.4 H 21.0-28.0 mmol/L Arterial Blood Oxygen Saturation 90.5 L 94.0-98.0 % Arterial Blood Base Excess 0.6 -2.0-3.0 mmol/L Arterial Blood Oxyhemoglobin 89.1 L 94.0-98.0 % Arterial Blood Carboxyhemoglobin 0.6 0.5-1.5 % Arterial Blood Methemoglobin 0.9 0.0-1.5 % Amari Test Modified Blood Gas Total Hemoglobin 19.80 *H 13.5-17.5 g/dL Blood Gas Set Respiration Rate 28.0 Blood Gas Modality Vent - ac FiO2 % 40.0 Blood Gas Tidal Volume 550.0 Blood Gas PEEP or CPAP 5.0 Blood Gas Critical Value Read Back Yes Blood Gas Notified Darrell Doty np. Blood Gas Notified Time [id number] Blood Gas Notified By Lashae webfocus developer Test 12/01/24 05:59 12/01/24 01:52 12/01/24 01:50 Range/Units White Blood Count 19.7 #H 4.4-10.8 10^3/uL Red Blood Count 5.32 4.5-5.90 10^6/uL Mean Corpuscular Volume 101.6 #H 80.0-100.0 fL Mean Corpuscular Hemoglobin 34.0 H 28.0-32.0 pg Mean Corpuscular Hemoglobin Concent 33.5 32.0-36.0 g/dL Red Cell Distribution Width 15.1 H 11.8-14.3 % Platelet Count 290 140-450 10^3/uL Mean Platelet Volume 8.7 6.9-10.8 fL Neutrophils (%) (Auto) 86.6 H 37.0-80.0 % Lymphocytes (%) (Auto) 2.4 L 10.0-50.0 % Monocytes (%) (Auto) 9.8 0.0-12.0 % Eosinophils (%) (Auto) 0.0 0.0-7.0 % Basophils (%) (Auto) 1.2 0.0-2.0 % Neutrophils # (Auto) 17.1 H 1.6-8.6 10 ^3/uL Lymphocytes # (Auto) 0.5 0.4-5.4 10 ^3/uL Monocytes # (Auto) 1.9 H 0-1.3 10 ^3/uL Eosinophils # (Auto) 0 0-0.8 10 ^3/uL Basophils # (Auto) 0.2 0-0.2 10 ^3/uL Nucleated Red Blood Cells 0.0 % Prothrombin Time 13.9 H 9.3-11.8 sec Prothrombin Time INR 1.35 H 0.9-1.15 Sodium Level 133 L 136-145 mmol/L Potassium Level 3.8 3.5-5.1 mmol/L Chloride Level 95 L 98-107 mmol/L Carbon Dioxide Level 23 20-31 mmol/L Anion Gap 15 5-15 Blood Urea Nitrogen 10 9-23 mg/dL Creatinine 0.89 0.700-1.30 mg/dL Glomerular Filtration Rate Calc 90 >90 mL/min BUN/Creatinine Ratio 11.2 10.0-20.0 Serum Glucose 216 H 74-106 mg/dL Calcium Level 8.7 8.7-10.4 mg/dL B-Type Natriuretic Peptide 93.41 0-100 pg/mL Total Bilirubin 0.6 0.2-1.0 mg/dL Aspartate Amino Transferase (AST) 45 H 13-40 U/L Alanine Aminotransferase (ALT) 26 7-40 U/L Alkaline Phosphatase 132 H 46-116 U/L Total Protein 6.8 5.7-8.2 g/dL Albumin 4.0 3.2-4.8 g/dL Urine Color Light-orange Yellow Urine Clarity Turbid H Clear Urine pH 6.0 5.0-9.0 Urine Specific [place] 1.013 1.001-1.035 Urine Protein 3+ H Negative Urine Ketones 1+ H Negative Urine Blood 2+ H Negative /uL Urine Nitrite Negative Negative Urine Bilirubin Negative Negative Urine Urobilinogen Normal Negative mg/dL Urine Leukocyte Esterase Negative Negative /uL Urine RBC 20 0 - 3 /hpf Urine Microscopic WBC 62 H 0-3 /HPF Urine Squamous Epithelial Cells Few <5 /hpf Urine Amorphous Crystals Few None Seen /hpf Urine Bacteria Few H None Seen /hpf Urine Hyaline Casts Few 0 - 2 /lpf Urine Sperm Present None Seen /hpf Urine Glucose Trace Normal mg/dL Microbiology Date/Time Source Procedure Growth Status 12/01/24 12:00 Nose MRSA Screen - Final Complete 12/01/24 00:50 Sputum Gram Stain - Final Resulted 12/01/24 00:50 Sputum Respiratory Culture Pending Resulted Assessment Impression: Acute hypoxic respiratory failure Acute hypercarbic respiratory failure On mechanical ventilator Possible fungal pneumonia Elevated troponin Lactic acidosis S/p cardiac arrest with ROSC Plan: s/p intubation on mechanical ventilator. CXR image and report reviewed. Devices in place. Hazy bilateral opacities. No pneumothorax. No pleural effusion. ABG reviewed, acidemia. On AC mode; RR 28, VT 550, PEEP 5, FiO2 70% Will increase PEEP to 8 Titrate FIO2 to keep O2 saturation above 90%. VAP bundle. Daily ABG and CXR while intubated Sedate for ventilator synchrony - on Versed Continue bronchodilators. IV steroids Continue antibiotics. F/u cultures. On amiodarone drip. On pressors for hemodynamic support Levophed 5 mcg/min Titrate to keep mean arterial pressure greater than 65 mmHg. Patient febrile - on cooling measures Start Diflucan given tree-in-bud opacities Cardiology recommendations appreciated Monitor hemoglobin Monitor renal function Monitor electrolytes. Supplement as necessary. Monitor ins and outs. Maintain euvolemia. GI prophylaxis- Protonix BID DVT prophylaxis. Prognosis: Poor given patient's multiple co-morbidities. Condition: Critical Rest of plan per hospitalist and other consultants. A total of 35 minutes of critical care time was spent reviewing the patient record, examining the patient, making a diagnostic and therapeutic plan, discussing this plan with the medical personnel, following up on diagnostic studies and following the patient for clinical stability excluding any and all procedures. At least 50% of this time was spent in direct, [id number] contact. Thank you, Dr. Saenz, for allowing me to participate in this patient's care. Further recommendations will depend on the patient's clinical course. Please do not hesitate to contact me if you have any questions or concerns. This medical document was created using an electronic medical record system with [employer] dictation system. Although these documentations are being carefully reviewed, there may still be some phonetic and typographical changes. The errors are purely typographical, due to imperfection on the software program, and do not reflect any compromise in the patient's medical care. Plan discussed with: Daughter, Other (RN/Dr. Saenz) DEXTER BEST MD Dec 01, 2024 20:28
[2024-12-01] MEDS: PANTOPRAZOLE 40 MG/10 ML VIAL INJ IV SCH (21:22)
[2024-12-01 22:20] LABS: Base Excess 2.1 mmol/L (-2.0-3.0)
[2024-12-01] MEDS: FLUCONAZOLE 200MG/100ML 100 ML IV SCH (22:41)
[2024-12-02] VITALS (107 sets, daily range): BP systolic 111–180; BP diastolic 69–115; PULSE 89–136; RESP 28–37; TEMP 96.8–99.9; O2SAT 88–99
[2024-12-02 00:40] LABS: Hemoglobin 17.3 g/dL (13.5-17.5)
[2024-12-02] MEDS ORDERED: DEXTROSE (50%) 50ML SYRG IV PRN (01:00)
[2024-12-02] MEDS: InsuLIN REG 1unit/0.01ml Soln (100units/ml) SC SCH (05:24)
--- NOTE | 2024-12-02 05:54 | DVH ---
EXAM: XR Chest, 1 View CLINICAL INDICATION: INTUBATED TECHNIQUE: Frontal view of the chest. COMPARISON: XY CHEST XRAY 1 VIEW on DOS: 12/01/24 FINDINGS: LUNGS AND PLEURAL SPACES: Mild pulmonary congestion. Bibasilar atelectasis. No pneumothorax. HEART: Unremarkable. No cardiomegaly. MEDIASTINUM: Unremarkable. Normal mediastinal contour. BONES/JOINTS: Unremarkable. No acute fracture. TUBES, LINES AND DEVICES: The endotracheal tube (ETT) is in satisfactory position. OTHER FINDINGS: . . . .. IMPRESSION: Mild pulmonary congestion. Bibasilar atelectasis.
[2024-12-02 05:58] LABS: Basophils # (auto) 0 10 ^3/uL (0-0.2); Basophils % (auto) 0.2 % (0.0-2.0); Eosinophils # (auto) 0 10 ^3/uL (0-0.8); Eosinophils % (auto) 0.1 % (0.0-7.0); Hematocrit 53.4 % (41.0-53.0); Lymphocytes # (auto) 0.6 10 ^3/uL (0.4-5.4); Lymphocytes % (auto) 4.2 % (10.0-50.0); Mean Corpuscular Hgb Conc. 33.7 g/dL (32.0-36.0); Mean Corpuscular Volume 100.8 fL (80.0-100.0); Monocytes # (auto) 0.8 10 ^3/uL (0-1.3); Monocytes % (auto) 5.7 % (0.0-12.0); Neutrophils # (auto) 13.2 10 ^3/uL (1.6-8.6); Neutrophils % (auto) 89.8 % (37.0-80.0); Nucleated Red Blood Cells % 0.1 %; Platelet Count (auto) 200 10^3/uL (140-450); Red Cell Distribution Width 14.9 % (11.8-14.3); White Blood Cell 14.7 10^3/uL (4.4-10.8)
[2024-12-02 06:02] LABS: Chloride 102 mmol/L (98-107); Potassium 3.7 mmol/L (3.5-5.1); Sodium 136 mmol/L (136-145)
[2024-12-02 06:03] LABS: Anion Gap 6 (5-15); Carbon Dioxide 28 mmol/L (20-31)
[2024-12-02 06:09] LABS: Blood Urea Nitrogen 18 mg/dL (9-23); Calcium 8.3 mg/dL (8.7-10.4); Glucose 169 mg/dL (74-106)
[2024-12-02 07:55] LABS: Anisocytosis Slight; Macrocytosis Slight
[2024-12-02 07:56] LABS: Platelet Estimate Adequate
[2024-12-02 08:25] LABS: Base Excess 1.1 mmol/L (-2.0-3.0)
--- NOTE | 2024-12-02 09:56 | DVHSR ---
APPROVED REPORT EXAM: LIMITED Two-dimensional and M-mode echocardiogram with Doppler and color Doppler. Blood Pressure: 156/58 mmHg INDICATION Cardiac Arrest Elevated [place] RISK FACTORS Height: 5' 10", Weight: 279 DIMENSIONS LVDd4.6 (3.8-5.7cm)LA (2D)4.9 (1.9-4.0cm)Aortic Root (2.0-3.7cm) LVDs3.5 (2.5-4.0cm)LA (MM) (1.9-4.0cm)Aortic Cusp Exc (1.5-2.0cm) EF (%) 47.0 (55-70%)Rt. Atrium5.0 (1.9-4.0cm)Asc. Aorta cm IVSd1.1 (0.7-1.1cm)RV (D) (1.8-2.4cm) PWd1.1 (0.7-1.1cm) Mitral Valve MitralMitral Stenosis E/A ratio0.02D MVAcm2 Aortic Valve Aortic ValveAortic Stenosis LVOT Diameter2.4 (1.8-2.4cm)Doppler AVAcm2 Tricuspid Valve TR Velocity2.30m/s [id number] Other Information Quality : Technically LimitedRhythm : Technically limited study due to body habitus,patient position and on vent. Conclusion Atrial fibrillation. Difficult acoustic windows. Limited views. There appears to be concentric LVH. Biatrial enlargement. Valves appear to be structurally normal. Left ventricular function is preserved at 55%. Mildly diminished RV function. No pericardial effusion masses or vegetations discernible. Doppler is suboptimal.
[2024-12-02] MEDS: METOPROLOL TARTRATE 1MG/1ML-5ML VIAL IV PRN (09:58)
--- NOTE | 2024-12-02 11:13 | DVHPN2 ---
Consult Progress Note Subjective Other Systems: The patient remains in atrial fibrillation on prop worker Objective vital signs Vital Sign Date Time Temp Pulse Resp B/P (MAP) Pulse Ox O2 Delivery O2 Flow Rate FiO2 12/02/24 09:59 123 28 178/115 (136) 96 60 12/02/24 06:45 99.9 99.9 12/02/24 00:00 Mechanical Ventilator+ Total Intake and Output 12/01/24 12/01/24 12/02/24 15:00 23:00 07:00 Intake Total 1294.99 ml 1387.54 ml 1348.28 ml Output Total 0 ml 350 ml 1825 ml Balance 1294.99 ml 1037.54 ml -476.72 ml medications Current Medications Medications Dose Ordered Sig/Germania Route Start Time Stop Time Status Last Admin Dose Admin Midazolam HCl 50 ml @ 1 mls/hr Q24H IV 12/01/24 02:45 12/01/24 09:05 1 MLS/HR Piperacillin Sod/ Tazobactam Sod 100 ml @ 100 mls/hr Q8H IV 12/01/24 10:00 12/02/24 09:59 100 MLS/HR Vancomycin HCl 0 ml @ 0 mls/hr UD IV 12/01/24 06:00 Ipratropium [place] 0.5 mg Q6HR NEB 12/01/24 06:00 12/02/24 06:41 0.5 MG Methylprednisolone Sodium Succinate 40 mg Q8HR IV 12/01/24 06:00 12/02/24 05:17 40 MG Metoprolol Tartrate 2.5 mg Q6HPRN PRN IV 12/01/24 06:15 Acetaminophen 650 mg Q6HPRN PRN MO 12/01/24 06:45 12/01/24 19:46 650 MG Vancomycin HCl 250 ml @ 200 mls/hr Q12H IV 12/01/24 18:00 12/02/24 05:17 200 MLS/HR Acetaminophen 650 mg Q4HP PRN PO 12/01/24 11:30 Ibuprofen 800 mg Q6HP PRN GT 12/01/24 11:45 12/01/24 11:44 800 MG Dextrose/Sodium Chloride 1,000 ml @ 125 mls/hr Q8H IV 12/01/24 14:00 12/02/24 04:29 125 MLS/HR Pantoprazole Sodium 40 mg BID IV 12/01/24 22:00 12/02/24 09:57 40 MG Diagnostic Test (Pha) 1 strip Q6HR 12/01/24 18:00 12/02/24 05:57 1 STRIP Fluconazole 100 ml @ 100 mls/hr 10,11 IV 12/01/24 20:30 12/02/24 09:59 100 MLS/HR Norepinephrine Bitartrate 250 ml @ 9.375 mls/ hr Q24H IV 12/01/24 15:00 Insulin Human Regular Q6HR SC 12/02/24 06:00 12/02/24 05:24 3 UNITS Dextrose 50 ml UD PRN IV 12/02/24 01:00 Metoprolol Tartrate 2.5 mg Q4HP PRN IV 12/02/24 09:30 12/02/24 09:58 2.5 MG Examination: GENERAL:Abnormal, LUNGS:Abnormal (Mechanically ventilated), CVS:Abnormal (Atrial fibrillation), NEURO:Abnormal (Off sedation, pupils fixed) laboratory and microbiology Laboratory Tests 12/02/24 04:54 Test 12/02/24 04:54 Range/Units Serum Glucose 169 H 74-106 mg/dL Problem List/Assessment/Plan Problem List/Assessment/Plan NSTEMI, possibly type 1 Sepsis with pneumonia Cardiopulmonary arrest with ROSC Atrial fibrillation with rapid ventricular rate Highly suspected anoxic brain injury Upper GI bleed Infrarenal AAA measuring 5 cm Left-sided pneumothorax Reviewed obesity Plan/Recommendation (Dr. Duron): Transthoracic echocardiogram reveals an EF of 55%. The patient remains in atrial fibrillation on prop worker. The patient is pending a repeat head CT at this time. Patient's pupils are fixed bilaterally and patient has no cough or gag reflex. [id number] VASc score: 3 points. Continue amiodarone drip. Avoid anticoagulation therapy at this time given GI bleed. He is highly suspected to having neurological insult. Given this suspicion, he is not a candidate for any invasive cardiac procedures and we will continue with conservative medical management for the time being. Consider goals of care with family. Thank you for allowing us to care for this patient. Please call with any questions or concerns. Critical care time: 38 min. This medical document was created using an electronic medical record system with voice recognition software and computerized dictation system. Although this document has been carefully reviewed, there might still be some phonetic and typographical errors. Occasional wrong-word or ``sound-alike substitutions may have occurred due to the inherent limitations of voice recognition software. These areas are purely typographical due to imperfections of the software programs and do not reflect any compromise in the patient's medical care. Please read the chart carefully and recognize, using context, where these substitutions have occurred. Plan discussed with: Other (Bedside RN) Date of Service: Dec 02, 2024 Billing Provider: PHILLIP ROSARIO Common Visit Codes: [id number] CARE 30-74 MIN PHILLIP ROSARIO Dec 02, 2024 11:13
--- NOTE | 2024-12-02 12:01 | DVH ---
EXAM: CT HEAD WITHOUT CONTRAST INDICATION: s/p cpr TECHNIQUE: CT of the head without intravenous contrast. Radiation Dose Information: CT Dose: CTDI volume is 65.18 mGy. Dose-length product is 1283.96 mGy*cm The dose indicators for CT are the volume Computed Tomography (CT) Dose Index (CTDIvol) and the Dose Length Product (DLP), and are measured in units of mGy and mGy-cm, respectively. These indicators are not patient dose, but values generated from the CT scanner acquisition factors. The report includes radiation exposure data for exposures received during this examination. COMPARISON: CT HEAD WITHOUT CONTRAST on DOS: 12/01/24 FINDINGS: Loss of oh-white matter differentiation, consistent with diffuse anoxic brain injury. Hyperdense fo ci seen within the arachnoid space, this likely represents pseudo subarachnoid hemorrhage. IMPRESSION: Loss of oh-white matter differentiation, consistent with diffuse anoxic brain injury.
--- NOTE | 2024-12-02 13:06 | DVHINCON2 ---
Neuro Consultation Date of Consultation Date: 12/02/24 History of Present Illness History of Present Illness: Maxim Mcintosh is a 74 year old male who presents with anoxic donna injury. Per notes, patient fell at home, EMS was called. Patient had witnessed arrest with EMS, ROSC in ER after about 15 minutes. Of note, patient was febrile to 106-107 on 12/01 Review of Systems Review of Systems: Review of Systems: 12 point review of systems is negative unless stated in HPI. Allergies and Medications Allergies: Coded Allergies: NO KNOWN ALLERGIES (Unverified , 12/01/24) Current Medications: Current Medications Medications (Trade) Dose Ordered Sig/Germania Route PRN Reason Start Time Stop Time Status Last Admin Vancomycin HCl 250 ml @ 200 mls/hr Q12H IV 12/01/24 18:00 12/02/24 05:17 Pantoprazole Sodium (Protonix) 40 mg BID IV 12/01/24 22:00 12/02/24 09:57 Diagnostic Test (Pha) (Accu-Chek Comfort Curve T) 1 strip Q6HR 12/01/24 18:00 12/02/24 12:30 Fluconazole 100 ml @ 100 mls/hr 10,11 IV 12/01/24 20:30 12/02/24 13:07 Norepinephrine Bitartrate 250 ml @ 9.375 mls/ hr Q24H IV 12/01/24 15:00 Insulin Human Regular (InsuLIN R) Q6HR SC 12/02/24 06:00 12/02/24 12:31 Dextrose 50 ml UD PRN IV Blood Sugar LESS THAN 60 12/02/24 01:00 Metoprolol Tartrate (Lopressor) 2.5 mg Q4HP PRN IV SBP>160 12/02/24 09:30 12/02/24 09:58 Piperacillin Sod/ Tazobactam Sod 100 ml @ 25 mls/hr Q8H IV 12/02/24 13:30 General Examination Last Vital sign Vital Signs Date Time Temp Pulse Resp B/P (MAP) Pulse Ox O2 Delivery O2 Flow Rate FiO2 12/02/24 13:30 98.0 110 28 156/97 (116) 92 98.0 12/02/24 12:38 60 12/02/24 00:00 Mechanical Ventilator+ Neuro Exam: Intubated, sedated. Negative cough, gag, corneal. Pupils equally round and dilated at 5 mm, no reactive. No abnml movements, no spontaneous movements. No response to painful stimuli. Downgoing toes. +1 reflexes throughout Labs: Laboratory Tests Test 12/01/24 00:50 12/01/24 01:09 12/01/24 01:50 12/01/24 01:52 Range/Units White Blood Count 13.1 H 4.4-10.8 10^3/uL Red Blood Count 4.90 4.5-5.90 10^6/uL Hemoglobin 17.0 13.5-17.5 g/dL Hematocrit 52.0 41.0-53.0 % Mean Corpuscular Volume 106.1 H 80.0-100.0 fL Mean Corpuscular Hemoglobin 34.8 H 28.0-32.0 pg Mean Corpuscular Hemoglobin Concent 32.8 32.0-36.0 g/dL Red Cell Distribution Width 15.7 H 11.8-14.3 % Platelet Count 279 140-450 10^3/uL Mean Platelet Volume 9.1 6.9-10.8 fL Neutrophils (%) (Auto) 76.5 37.0-80.0 % Lymphocytes (%) (Auto) 9.2 L 10.0-50.0 % Monocytes (%) (Auto) 12.9 H 0.0-12.0 % Eosinophils (%) (Auto) 0.3 0.0-7.0 % Basophils (%) (Auto) 1.1 0.0-2.0 % Neutrophils # (Auto) 10.0 H 1.6-8.6 10 ^3/uL Lymphocytes # (Auto) 1.2 0.4-5.4 10 ^3/uL Monocytes # (Auto) 1.7 H 0-1.3 10 ^3/uL Eosinophils # (Auto) 0 0-0.8 10 ^3/uL Basophils # (Auto) 0.1 0-0.2 10 ^3/uL Nucleated Red Blood Cells 0.5 % Lactic Acid Level 11.4 *H 0.4-2.0 mmol/L Blood Gas Specimen Type Arterial Blood Gas Sample Site Left radial Blood Gas Patient Temperature 37.0 Arterial Blood Date Drawn [id number] Arterial Blood pH 6.984 *L 7.350-7.450 Arterial Blood Partial Pressure CO2 80.2 *H 35.0-48.0 mmHg Arterial Blood Partial Pressure O2 411.9 *H 83.0-108.0 mmHg Arterial Blood HCO3 18.6 L 21.0-28.0 mmol/L Arterial Blood Oxygen Saturation 99.8 H 94.0-98.0 % Arterial Blood Base Excess -15.0 L -2.0-3.0 mmol/L Arterial Blood Oxyhemoglobin 96.4 94.0-98.0 % Arterial Blood Carboxyhemoglobin 2.5 H 0.5-1.5 % Arterial Blood Methemoglobin 0.9 0.0-1.5 % Amari Test Modified Blood Gas Total Hemoglobin 17.60 H 13.5-17.5 g/dL Blood Gas Set Respiration Rate 20.0 Blood Gas Modality Vent - ac FiO2 % 100.0 Blood Gas Tidal Volume 500.0 Blood Gas PEEP or CPAP 8.0 Blood Gas Critical Value Read Back Yes Blood Gas Notified Whom Dr. jessenia estrada Blood Gas Notified Time [id number] Blood Gas Notified By Rt tita lehman Urine Color Light-orange Yellow Urine Clarity Turbid H Clear Urine pH 6.0 5.0-9.0 Urine Specific [place] 1.013 1.001-1.035 Urine Protein 3+ H Negative Urine Ketones 1+ H Negative Urine Blood 2+ H Negative /uL Urine Nitrite Negative Negative Urine Bilirubin Negative Negative Urine Urobilinogen Normal Negative mg/dL Urine Leukocyte Esterase Negative Negative /uL Urine RBC 20 0 - 3 /hpf Urine Microscopic WBC 62 H 0-3 /HPF Urine Squamous Epithelial Cells Few <5 /hpf Urine Amorphous Crystals Few None Seen /hpf Urine Bacteria Few H None Seen /hpf Urine Hyaline Casts Few 0 - 2 /lpf Urine Sperm Present None Seen /hpf Urine Glucose Trace Normal mg/dL Sodium Level 129 L 136-145 mmol/L Potassium Level 4.6 3.5-5.1 mmol/L Chloride Level 94 L 98-107 mmol/L Carbon Dioxide Level 21 20-31 mmol/L Anion Gap 14 5-15 Blood Urea Nitrogen 9 9-23 mg/dL Creatinine 0.90 0.700-1.30 mg/dL Glomerular Filtration Rate Calc 90 >90 mL/min BUN/Creatinine Ratio 10.0 10.0-20.0 Serum Glucose 220 H 74-106 mg/dL Calcium Level 9.4 8.7-10.4 mg/dL Total Bilirubin 0.6 0.2-1.0 mg/dL Aspartate Amino Transferase (AST) 45 H 13-40 U/L Alanine Aminotransferase (ALT) 26 7-40 U/L Alkaline Phosphatase 132 H 46-116 U/L Troponin I High Sensitivity 38 </=54 ng/L Total Protein 6.8 5.7-8.2 g/dL Albumin 4.0 3.2-4.8 g/dL Test 12/01/24 03:02 12/01/24 03:09 12/01/24 04:53 12/01/24 05:59 Range/Units Blood Gas Specimen Type Arterial Blood Gas Sample Site Left radial Blood Gas Patient Temperature 37.0 Arterial Blood Date Drawn [id number] Arterial Blood pH 7.167 *L 7.350-7.450 Arterial Blood Partial Pressure CO2 66.8 *H 35.0-48.0 mmHg Arterial Blood Partial Pressure O2 292.6 H 83.0-108.0 mmHg Arterial Blood HCO3 23.7 21.0-28.0 mmol/L Arterial Blood Oxygen Saturation 99.8 H 94.0-98.0 % Arterial Blood Base Excess -6.6 L -2.0-3.0 mmol/L Arterial Blood Oxyhemoglobin 96.8 94.0-98.0 % Arterial Blood Carboxyhemoglobin 2.1 H 0.5-1.5 % Arterial Blood Methemoglobin 0.9 0.0-1.5 % Amari Test Modified Blood Gas Total Hemoglobin 17.60 H 13.5-17.5 g/dL Blood Gas Set Respiration Rate 28.0 Blood Gas Modality Vent - ac FiO2 % 80.0 Blood Gas Tidal Volume 500.0 Blood Gas PEEP or CPAP 5.0 Blood Gas Critical Value Read Back Yes Blood Gas Notified Whom Dr. jessenia estrada Blood Gas Notified Time [id number] Blood Gas Notified By Rt tita lehman Lactic Acid Level 5.1 *H 5.4 *H 0.4-2.0 mmol/L Troponin I High Sensitivity 60 *H 110 *H 115 *H </=54 ng/L White Blood Count 19.7 #H 4.4-10.8 10^3/uL Red Blood Count 5.32 4.5-5.90 10^6/uL Hemoglobin 18.1 H 13.5-17.5 g/dL Hematocrit 54.0 H 41.0-53.0 % Mean Corpuscular Volume 101.6 #H 80.0-100.0 fL Mean Corpuscular Hemoglobin 34.0 H 28.0-32.0 pg Mean Corpuscular Hemoglobin Concent 33.5 32.0-36.0 g/dL Red Cell Distribution Width 15.1 H 11.8-14.3 % Platelet Count 290 140-450 10^3/uL Mean Platelet Volume 8.7 6.9-10.8 fL Neutrophils (%) (Auto) 86.6 H 37.0-80.0 % Lymphocytes (%) (Auto) 2.4 L 10.0-50.0 % Monocytes (%) (Auto) 9.8 0.0-12.0 % Eosinophils (%) (Auto) 0.0 0.0-7.0 % Basophils (%) (Auto) 1.2 0.0-2.0 % Neutrophils # (Auto) 17.1 H 1.6-8.6 10 ^3/uL Lymphocytes # (Auto) 0.5 0.4-5.4 10 ^3/uL Monocytes # (Auto) 1.9 H 0-1.3 10 ^3/uL Eosinophils # (Auto) 0 0-0.8 10 ^3/uL Basophils # (Auto) 0.2 0-0.2 10 ^3/uL Nucleated Red Blood Cells 0.0 % Prothrombin Time 13.9 H 9.3-11.8 sec Prothrombin Time INR 1.35 H 0.9-1.15 Sodium Level 133 L 136-145 mmol/L Potassium Level 3.8 3.5-5.1 mmol/L Chloride Level 95 L 98-107 mmol/L Carbon Dioxide Level 23 20-31 mmol/L Anion Gap 15 5-15 Blood Urea Nitrogen 10 9-23 mg/dL Creatinine 0.89 0.700-1.30 mg/dL Glomerular Filtration Rate Calc 90 >90 mL/min BUN/Creatinine Ratio 11.2 10.0-20.0 Serum Glucose 216 H 74-106 mg/dL Calcium Level 8.7 8.7-10.4 mg/dL B-Type Natriuretic Peptide 93.41 0-100 pg/mL Test 12/01/24 06:54 12/01/24 11:40 12/01/24 12:06 12/01/24 17:52 Range/Units Blood Gas Specimen Type Arterial Blood Gas Sample Site Left radial Blood Gas Patient Temperature 37.0 Arterial Blood Date Drawn [id number] Arterial Blood pH 7.296 L 7.350-7.450 Arterial Blood Partial Pressure CO2 61.6 *H 35.0-48.0 mmHg Arterial Blood Partial Pressure O2 64.1 L 83.0-108.0 mmHg Arterial Blood HCO3 29.4 H 21.0-28.0 mmol/L Arterial Blood Oxygen Saturation 90.5 L 94.0-98.0 % Arterial Blood Base Excess 0.6 -2.0-3.0 mmol/L Arterial Blood Oxyhemoglobin 89.1 L 94.0-98.0 % Arterial Blood Carboxyhemoglobin 0.6 0.5-1.5 % Arterial Blood Methemoglobin 0.9 0.0-1.5 % Amari Test Modified Blood Gas Total Hemoglobin 19.80 *H 13.5-17.5 g/dL Blood Gas Set Respiration Rate 28.0 Blood Gas Modality Vent - ac FiO2 % 40.0 Blood Gas Tidal Volume 550.0 Blood Gas PEEP or CPAP 5.0 Blood Gas Critical Value Read Back Yes Blood Gas Notified Whom Soren vidal. Blood Gas Notified Time [id number] Blood Gas Notified By Lashae houser Hemoglobin 17.9 H 13.5-17.5 g/dL Hematocrit 53.6 H 41.0-53.0 % Lactic Acid Level 2.0 0.4-2.0 mmol/L Troponin I High Sensitivity 244 *H </=54 ng/L POC Glucose 126 H 128 H 70-106 mg/dl Test 12/01/24 18:05 12/01/24 22:01 12/01/24 22:14 12/01/24 23:51 Range/Units Hemoglobin 17.1 13.5-17.5 g/dL Hematocrit 51.6 41.0-53.0 % Lactic Acid Level 1.7 0.4-2.0 mmol/L Troponin I High Sensitivity 223 *H </=54 ng/L Blood Gas Specimen Type Arterial Blood Gas Sample Site Right radial Blood Gas Patient Temperature 37.0 Arterial Blood Date Drawn [id number] Arterial Blood pH 7.401 7.350-7.450 Arterial Blood Partial Pressure CO2 45.5 35.0-48.0 mmHg Arterial Blood Partial Pressure O2 63.4 L 83.0-108.0 mmHg Arterial Blood HCO3 27.6 21.0-28.0 mmol/L Arterial Blood Oxygen Saturation 92.6 L 94.0-98.0 % Arterial Blood Base Excess 2.1 -2.0-3.0 mmol/L Arterial Blood Oxyhemoglobin 91.4 L 94.0-98.0 % Arterial Blood Carboxyhemoglobin 0.6 0.5-1.5 % Arterial Blood Methemoglobin 0.7 0.0-1.5 % Amari Test Yes Blood Gas Total Hemoglobin 18.10 *H 13.5-17.5 g/dL Blood Gas Set Respiration Rate 28.0 Blood Gas Modality Vent - ac FiO2 % 60.0 Blood Gas Tidal Volume 550.0 Blood Gas PEEP or CPAP 8.0 Blood Gas Critical Value Read Back yes Blood Gas Notified Whom Dr. arauz Blood Gas Notified Time [id number] Blood Gas Notified By mariam pat, rt POC Glucose 243 H 70-106 mg/dl Test 12/02/24 00:14 12/02/24 04:54 12/02/24 05:19 12/02/24 08:10 Range/Units Hemoglobin 17.3 18.0 H 13.5-17.5 g/dL Hematocrit 51.0 53.4 H 41.0-53.0 % White Blood Count 14.7 #H 4.4-10.8 10^3/uL Red Blood Count 5.30 4.5-5.90 10^6/uL Mean Corpuscular Volume 100.8 H 80.0-100.0 fL Mean Corpuscular Hemoglobin 34.0 H 28.0-32.0 pg Mean Corpuscular Hemoglobin Concent 33.7 32.0-36.0 g/dL Red Cell Distribution Width 14.9 H 11.8-14.3 % Platelet Count 200 140-450 10^3/uL Mean Platelet Volume 9.2 6.9-10.8 fL Neutrophils (%) (Auto) 89.8 H 37.0-80.0 % Lymphocytes (%) (Auto) 4.2 L 10.0-50.0 % Monocytes (%) (Auto) 5.7 0.0-12.0 % Eosinophils (%) (Auto) 0.1 0.0-7.0 % Basophils (%) (Auto) 0.2 0.0-2.0 % Neutrophils # (Auto) 13.2 H 1.6-8.6 10 ^3/uL Lymphocytes # (Auto) 0.6 0.4-5.4 10 ^3/uL Monocytes # (Auto) 0.8 0-1.3 10 ^3/uL Eosinophils # (Auto) 0 0-0.8 10 ^3/uL Basophils # (Auto) 0 0-0.2 10 ^3/uL Nucleated Red Blood Cells 0.1 % Platelet Estimate Adequate Anisocytosis (manual) Slight Macrocytosis Slight Sodium Level 136 136-145 mmol/L Potassium Level 3.7 3.5-5.1 mmol/L Chloride Level 102 98-107 mmol/L Carbon Dioxide Level 28 20-31 mmol/L Anion Gap 6 5-15 Blood Urea Nitrogen 18 9-23 mg/dL Creatinine 1.00 0.700-1.30 mg/dL Glomerular Filtration Rate Calc 79 >90 mL/min BUN/Creatinine Ratio 18.0 10.0-20.0 Serum Glucose 169 H 74-106 mg/dL Calcium Level 8.3 L 8.7-10.4 mg/dL Magnesium Level 1.8 1.6-2.6 mg/dL POC Glucose 164 H 70-106 mg/dl Blood Gas Specimen Type Arterial Blood Gas Sample Site Right brachial Blood Gas Patient Temperature 37.0 Arterial Blood Date Drawn [id number] Arterial Blood pH 7.384 7.350-7.450 Arterial Blood Partial Pressure CO2 46.1 35.0-48.0 mmHg Arterial Blood Partial Pressure O2 63.5 L 83.0-108.0 mmHg Arterial Blood HCO3 26.9 21.0-28.0 mmol/L Arterial Blood Oxygen Saturation 91.5 L 94.0-98.0 % Arterial Blood Base Excess 1.1 -2.0-3.0 mmol/L Arterial Blood Oxyhemoglobin 90.7 L 94.0-98.0 % Arterial Blood Carboxyhemoglobin 0.3 L 0.5-1.5 % Arterial Blood Methemoglobin 0.6 0.0-1.5 % Amari Test Modified Blood Gas Total Hemoglobin 18.70 *H 13.5-17.5 g/dL Blood Gas Set Respiration Rate 28.0 Blood Gas Modality Vent - ac FiO2 % 60.0 Blood Gas Tidal Volume 550.0 Blood Gas PEEP or CPAP 8.0 Blood Gas Critical Value Read Back yes Blood Gas Notified Whom kapil Arauz md Blood Gas Notified Time [id number] Blood Gas Notified By Test 12/02/24 12:07 Range/Units POC Glucose 138 H 70-106 mg/dl Assessment/Plan 1. Anoxic brain injury - EMS witnessed arrest at 0037, transferred to ED by 0047, ROSC 0052. Reported arrest 15 minutes. 12/01 CT head wo contrast no acute process. / CT head wo contrast loss of oh white matter differentiation, consistent with diffuse anoxic brain injury. Spoke to son, he wants to discuss with patient's . - Repeat CT head on 2/7 am - Keep patient euthermic, euvoluemic Plan discussed with: EMILIO Barnes MD Dec 02, 2024 13:06
[2024-12-02] MEDS: PIPERACILLIN-TAZOB 3.375GM 100 ML IV SCH (13:30)
--- NOTE | 2024-12-02 15:00 | DVHPN2 ---
Progress Note - Dictate Date Seen: Dec 02, 2024 Medical Necessity Reason Pt with a Central, PICC or Fol: Yes Subjective Patient remains critically ill. Son at bedside. Repeat head CT shows anoxic brain injury. Patient has been off of sedation overnight and does not have any cough or gag reflex per nurse. Remains ventilator dependent. vital signs Vital Sign Date Time Temp Pulse Resp B/P (MAP) Pulse Ox O2 Delivery O2 Flow Rate FiO2 12/02/24 14:45 98.4 111 28 157/94 (115) 92 98.4 12/02/24 14:16 60 12/02/24 00:00 Mechanical Ventilator+ Total Intake and Output 12/01/24 12/01/24 12/02/24 15:00 23:00 07:00 Intake Total 1294.99 ml 1387.54 ml 1348.28 ml Output Total 0 ml 350 ml 1825 ml Balance 1294.99 ml 1037.54 ml -476.72 ml medications Current Medications Medications Dose Ordered Sig/Germania Route Start Time Stop Time Status Last Admin Dose Admin Midazolam HCl 50 ml @ 1 mls/hr Q24H IV 12/01/24 02:45 12/01/24 09:05 1 MLS/HR Vancomycin HCl 0 ml @ 0 mls/hr UD IV 12/01/24 06:00 Ipratropium [place] 0.5 mg Q6HR NEB 12/01/24 06:00 12/02/24 12:38 0.5 MG Methylprednisolone Sodium Succinate 40 mg Q8HR IV 12/01/24 06:00 12/02/24 14:00 40 MG Metoprolol Tartrate 2.5 mg Q6HPRN PRN IV 12/01/24 06:15 Acetaminophen 650 mg Q6HPRN PRN [place] 12/01/24 06:45 12/01/24 19:46 650 MG Vancomycin HCl 250 ml @ 200 mls/hr Q12H IV 12/01/24 18:00 12/02/24 05:17 200 MLS/HR Acetaminophen 650 mg Q4HP PRN PO 12/01/24 11:30 Ibuprofen 800 mg Q6HP PRN GT 12/01/24 11:45 12/01/24 11:44 800 MG Dextrose/Sodium Chloride 1,000 ml @ 125 mls/hr Q8H IV 12/01/24 14:00 12/02/24 04:29 125 MLS/HR Pantoprazole Sodium 40 mg BID IV 12/01/24 22:00 12/02/24 09:57 40 MG Diagnostic Test (Pha) 1 strip Q6HR 12/01/24 18:00 12/02/24 12:30 1 STRIP Fluconazole 100 ml @ 100 mls/hr 10,11 IV 12/01/24 20:30 12/02/24 13:07 100 MLS/HR Norepinephrine Bitartrate 250 ml @ 9.375 mls/ hr Q24H IV 12/01/24 15:00 Insulin Human Regular Q6HR SC 12/02/24 06:00 12/02/24 12:31 2 UNITS Dextrose 50 ml UD PRN IV 12/02/24 01:00 Metoprolol Tartrate 2.5 mg Q4HP PRN IV 12/02/24 09:30 12/02/24 09:58 2.5 MG Piperacillin Sod/ Tazobactam Sod 100 ml @ 25 mls/hr Q8H IV 12/02/24 13:30 objective Off of sedation. Neurologically both pupils are fixed and dilated. No response to deep sternal rub. Heart sinus tachycardia S1 plus S2 without audible murmurs. Lungs fair air movement without any audible rales or wheezing. Abdomen is soft nontender positive bowel sounds. Extremities positive pulses no edema. laboratory and microbiology Laboratory Tests 12/02/24 04:54 Test 12/02/24 04:54 Range/Units Serum Glucose 169 H 74-106 mg/dL Assessment/Plan Patient's does not appear to have any neurological response based on the examination and CT of the head findings. We will wait for Neurology evaluation and further recommendations. Discussed with the son at bedside regarding CT findings and neuro exam and highly unlikely in recovery for any meaningful neurological response for quality of life. For now continue current medical management treatment as he is on. Continue current ventilator settings. Further clinical management per clinical course and recommendations from the consultants. Discussed with the nurse regarding care plan at bedside. Problems(with codes): (1) Cardiac arrest (2) Anoxic brain damage (3) Acute hypoxic respiratory failure (4) AAA (abdominal aortic aneurysm) (5) New onset a-fib Plan discussed with: Son, Other NIGHAT BOX MD Dec 02, 2024 15:00
[2024-12-03] VITALS (53 sets, daily range): BP systolic 110–157; BP diastolic 76–108; PULSE 81–108; RESP 21–28; TEMP 97.3–99.9; O2SAT 90–98
[2024-12-03 03:45] LABS: Anion Gap 9 (5-15); Calcium 8.7 mg/dL (8.7-10.4); Carbon Dioxide 29 mmol/L (20-31)
[2024-12-03 03:50] LABS: BUN/Creatinine Ratio 16.5 (10.0-20.0); Blood Urea Nitrogen 15 mg/dL (9-23)
[2024-12-03 03:58] LABS: Chloride 108 mmol/L (98-107); Glucose 198 mg/dL (74-106); Potassium 3.1 mmol/L (3.5-5.1); Sodium 146 mmol/L (136-145)
[2024-12-03 04:16] LABS: Basophils # (auto) 0 10 ^3/uL (0-0.2); Basophils % (auto) 0.1 % (0.0-2.0); Eosinophils # (auto) 0 10 ^3/uL (0-0.8); Hemoglobin 17.5 g/dL (13.5-17.5); Lymphocytes # (auto) 0.3 10 ^3/uL (0.4-5.4); Mean Corpuscular Hemoglobin 36.7 pg (28.0-32.0); Mean Corpuscular Hgb Conc. 35.1 g/dL (32.0-36.0); Mean Corpuscular Volume 104.5 fL (80.0-100.0); Monocytes # (auto) 0.7 10 ^3/uL (0-1.3); Monocytes % (auto) 5.2 % (0.0-12.0); Neutrophils # (auto) 13.2 10 ^3/uL (1.6-8.6); Neutrophils % (auto) 92.7 % (37.0-80.0); Platelet Count (auto) 194 10^3/uL (140-450); Red Blood Cells 4.78 10^6/uL (4.5-5.90); White Blood Cell 14.2 10^3/uL (4.4-10.8)
[2024-12-03 08:32] LABS: Base Excess 0.4 mmol/L (-2.0-3.0)
[2024-12-03] MEDS: POTASSIUM CHL 20MEQ/100ML 100 ML IV ONE (09:22)
--- NOTE | 2024-12-03 11:07 | DVHPN2 ---
Consult Progress Note Subjective Other Systems: Patient is off sedation, no cough/gag reflex and pupils are fixed. Objective vital signs Vital Sign Date Time Temp Pulse Resp B/P (MAP) Pulse Ox O2 Delivery O2 Flow Rate FiO2 12/03/24 10:00 60 12/03/24 10:00 99.0 92 28 122/84 (97) 93 210.2 12/03/24 08:00 Mechanical Ventilator+ Total Intake and Output 12/02/24 12/02/24 12/03/24 15:00 23:00 07:00 Intake Total 833.28 ml 1408.28 ml 1508.28 ml Output Total 0 ml 1700 ml 2900 ml Balance 833.28 ml -291.72 ml -1391.72 ml medications Current Medications Medications Dose Ordered Sig/Germania Route Start Time Stop Time Status Last Admin Dose Admin Midazolam HCl 50 ml @ 1 mls/hr Q24H IV 12/01/24 02:45 12/01/24 09:05 1 MLS/HR Vancomycin HCl 0 ml @ 0 mls/hr UD IV 12/01/24 06:00 Ipratropium Ronda 0.5 mg Q6HR NEB 12/01/24 06:00 12/03/24 06:12 0.5 MG Methylprednisolone Sodium Succinate 40 mg Q8HR IV 12/01/24 06:00 12/03/24 06:19 40 MG Metoprolol Tartrate 2.5 mg Q6HPRN PRN IV 12/01/24 06:15 Acetaminophen 650 mg Q6HPRN PRN IA 12/01/24 06:45 12/01/24 19:46 650 MG Vancomycin HCl 250 ml @ 200 mls/hr Q12H IV 12/01/24 18:00 12/03/24 05:03 200 MLS/HR Acetaminophen 650 mg Q4HP PRN PO 12/01/24 11:30 Ibuprofen 800 mg Q6HP PRN GT 12/01/24 11:45 12/01/24 11:44 800 MG Dextrose/Sodium Chloride 1,000 ml @ 125 mls/hr Q8H IV 12/01/24 14:00 12/03/24 02:27 125 MLS/HR Pantoprazole Sodium 40 mg BID IV 12/01/24 22:00 12/03/24 07:40 40 MG Diagnostic Test (Pha) 1 strip Q6HR 12/01/24 18:00 12/03/24 06:19 1 STRIP Fluconazole 100 ml @ 100 mls/hr 10,11 IV 12/01/24 20:30 12/03/24 09:26 100 MLS/HR Norepinephrine Bitartrate 250 ml @ 9.375 mls/ hr Q24H IV 12/01/24 15:00 Insulin Human Regular Q6HR SC 12/02/24 06:00 12/03/24 06:23 6 UNITS Dextrose 50 ml UD PRN IV 12/02/24 01:00 Metoprolol Tartrate 2.5 mg Q4HP PRN IV 12/02/24 09:30 12/02/24 09:58 2.5 MG Piperacillin Sod/ Tazobactam Sod 100 ml @ 25 mls/hr Q8H IV 12/02/24 13:30 12/03/24 06:19 25 MLS/HR Examination: GENERAL:Abnormal, LUNGS:Abnormal (mechanically ventilated), CVS:Normal, NEURO:Abnormal (off sedation, fixed pupils, no cough or gag reflex) laboratory and microbiology Laboratory Tests 12/03/24 02:57 Test 12/03/24 02:57 Range/Units Serum Glucose 198 H 74-106 mg/dL Problem List/Assessment/Plan Problem List/Assessment/Plan NSTEMI, possibly type 1 Sepsis with pneumonia Cardiopulmonary arrest with ROSC Atrial fibrillation with rapid ventricular rate Highly suspected anoxic brain injury Upper GI bleed Infrarenal AAA measuring 5 cm Left-sided pneumothorax Obesity Plan/Recommendation (Dr. Person): Transthoracic echocardiogram reveals an EF of 55%. The patient remains in atrial fibrillation on director of cardiac cath lab. The patient underwent a repeat Head CT on 12/02/24 which revealed: Loss of oh-white matter differentiation, consistent with diffuse anoxic brain injury. Patient's pupils are fixed bilaterally and patient has no cough or gag reflex. [id number] VASc score: 3 points. Continue amiodarone drip. Avoid anticoagulation therapy at this time given GI bleed. He is highly suspected to having neurological insult. Given this suspicion, he is not a candidate for any invasive cardiac procedures. Per RN, patient's family has decided to go forward with a terminal wean today. There is no further inpatient cardiac work-up indicated at this time. Thank you for allowing us to care for this patient. Please call with any questions or concerns. Critical care time: 38 min. This medical document was created using an electronic medical record system with voice recognition software and computerized dictation system. Although this document has been carefully reviewed, there might still be some phonetic and typographical errors. Occasional wrong-word or ``sound-alike substitutions may have occurred due to the inherent limitations of voice recognition software. These areas are purely typographical due to imperfections of the software programs and do not reflect any compromise in the patient's medical care. Please read the chart carefully and recognize, using context, where these substitutions have occurred. Plan discussed with: Other (Bedside RN) Dietary Evaluation Review Comments: 1. TPN per pharmacy if NPO>7 days 2. Supplement clinimix @41ml/hr with TF-Glucerna @50ml/hr (72 gPro 1440 kcal) if EN/GI accessible. the total combo will provide 76% Pro of his needs, and energy at 16 kcal/kg ABW 3. PO CCHO-60 Cardiac diet, if off vent and pass speech eval. Expected Outcomes/Goals: Off vent, advanced to 2 GNa CCHO-60 low fat low chol cardiac diet. Date of Service: Dec 03, 2024 Billing Provider: PHILLIP ROSARIO Common Visit Codes: [id number] CARE 30-74 MIN PHILLIP ROSARIO Dec 03, 2024 11:06
[2024-12-03] MEDS: LORazepam 2MG/ML-1ML VIAL IV PRN (11:51)
[2024-12-03] MEDS: MORPHINE SULFATE INJ 2 MG/ml SYRG IV PRN (11:52)
--- NOTE | 2024-12-03 13:36 | DVHDS2 ---
Summary Date of Admission Dec 01, 2024 at 05:56 Date and Time of Expiration: Dec 03, 2024 12:30 Labs/Diagnostic Data: Laboratory Results Test 12/03/24 07:07 12/03/24 06:20 12/03/24 02:57 12/02/24 17:30 Blood Gas Specimen Type Arterial Blood Gas Sample Site Right brachial Blood Gas Patient Temperature 37.0 Arterial Blood Date Drawn [id number] Arterial Blood pH 7.379 (7.350-7.450) Arterial Blood Partial Pressure CO2 45.2 mmHg (35.0-48.0) Arterial Blood Partial Pressure O2 64.1 mmHg (83.0-108.0) Arterial Blood HCO3 26.1 mmol/L (21.0-28.0) Arterial Blood Oxygen Saturation 91.5 % (94.0-98.0) Arterial Blood Base Excess 0.4 mmol/L (-2.0-3.0) Arterial Blood Oxyhemoglobin 90.9 % (94.0-98.0) Arterial Blood Carboxyhemoglobin 0.3 % (0.5-1.5) Arterial Blood Methemoglobin 0.4 % (0.0-1.5) Amari Test N/a Blood Gas Total Hemoglobin 17.60 g/dL (13.5-17.5) Blood Gas Set Respiration Rate 28.0 Blood Gas Modality Vent - ac FiO2 % 60.0 Blood Gas Tidal Volume 550.0 Blood Gas PEEP or CPAP 8.0 Specimen Drawn By POC Glucose 228 mg/dl (70-106) White Blood Count 14.2 10^3/uL (4.4-10.8) Red Blood Count 4.78 10^6/uL (4.5-5.90) Hemoglobin 17.5 g/dL (13.5-17.5) Hematocrit 50.0 % (41.0-53.0) Mean Corpuscular Volume 104.5 fL (80.0-100.0) Mean Corpuscular Hemoglobin 36.7 pg (28.0-32.0) Mean Corpuscular Hemoglobin Concent 35.1 g/dL (32.0-36.0) Red Cell Distribution Width 15.0 % (11.8-14.3) Platelet Count 194 10^3/uL (140-450) Mean Platelet Volume 9.2 fL (6.9-10.8) Neutrophils (%) (Auto) 92.7 % (37.0-80.0) Lymphocytes (%) (Auto) 2.0 % (10.0-50.0) Monocytes (%) (Auto) 5.2 % (0.0-12.0) Eosinophils (%) (Auto) 0.0 % (0.0-7.0) Basophils (%) (Auto) 0.1 % (0.0-2.0) Neutrophils # (Auto) 13.2 10 ^3/uL (1.6-8.6) Lymphocytes # (Auto) 0.3 10 ^3/uL (0.4-5.4) Monocytes # (Auto) 0.7 10 ^3/uL (0-1.3) Eosinophils # (Auto) 0 10 ^3/uL (0-0.8) Basophils # (Auto) 0 10 ^3/uL (0-0.2) Nucleated Red Blood Cells 0.0 % Sodium Level 146 mmol/L (136-145) Potassium Level 3.1 mmol/L (3.5-5.1) Chloride Level 108 mmol/L (98-107) Carbon Dioxide Level 29 mmol/L (20-31) Anion Gap 9 (5-15) Blood Urea Nitrogen 15 mg/dL (9-23) Creatinine 0.91 mg/dL (0.700-1.30) Glomerular Filtration Rate Calc 88 mL/min (>90) BUN/Creatinine Ratio 16.5 (10.0-20.0) Serum Glucose 198 mg/dL (74-106) Calcium Level 8.7 mg/dL (8.7-10.4) Vancomycin Level Trough 18.1 ug/mL (5-10) Test 12/02/24 08:10 12/02/24 04:54 12/01/24 22:01 12/01/24 18:05 Blood Gas Critical Value Read Back yes Blood Gas Notified Whom kapil Loja md Blood Gas Notified Time [id number] Blood Gas Notified By Platelet Estimate Adequate Anisocytosis (manual) Slight Macrocytosis Slight Magnesium Level 1.8 mg/dL (1.6-2.6) Troponin I High Sensitivity 223 ng/L (</=54) Lactic Acid Level 1.7 mmol/L (0.4-2.0) Test 12/01/24 05:59 12/01/24 01:52 12/01/24 01:50 Prothrombin Time 13.9 sec (9.3-11.8) Prothrombin Time INR 1.35 (0.9-1.15) B-Type Natriuretic Peptide 93.41 pg/mL (0-100) Total Bilirubin 0.6 mg/dL (0.2-1.0) Aspartate Amino Transferase (AST) 45 U/L (13-40) Alanine Aminotransferase (ALT) 26 U/L (7-40) Alkaline Phosphatase 132 U/L (46-116) Total Protein 6.8 g/dL (5.7-8.2) Albumin 4.0 g/dL (3.2-4.8) Urine Color Light-orange (Yellow) Urine Clarity Turbid (Clear) Urine pH 6.0 (5.0-9.0) Urine Specific [place] 1.013 (1.001-1.035) Urine Protein 3+ (Negative) Urine Ketones 1+ (Negative) Urine Blood 2+ /uL (Negative) Urine Nitrite Negative (Negative) Urine Bilirubin Negative (Negative) Urine Urobilinogen Normal mg/dL (Negative) Urine Leukocyte Esterase Negative /uL (Negative) Urine RBC 20 /hpf (0 - 3) Urine Microscopic WBC 62 /HPF (0-3) Urine Squamous Epithelial Cells Few /hpf (<5) Urine Amorphous Crystals Few /hpf (None Seen) Urine Bacteria Few /hpf (None Seen) Urine Hyaline Casts Few /lpf (0 - 2) Urine Sperm Present /hpf (None Seen) Urine Glucose Trace mg/dL (Normal) Other Laboratory Tests 12/03/24 02:57 Brief Hx & Hospital Course: 74 y/o M is BIBA for cardiac arrest, today. Per EMS report, staff, initially, received a call from patient's spouse after he became altered, earlier, this morning, and fell from the bed when attempted to be moved and taken to the hospital. EMS staff notes on patient having agonal breathing, hypotensive at 90/63, and bradycardic at a rate of 58, with a blood glucose of 227, initially, on scene. En route, patient's condition was then commented to have deteriorate and had a witnessed arrest when he went into asystole at 0037. CPR was stated to have been initiated, immediately, in addition to I/O access placed along with 2x epinephrine shots administered. Upon arrival to ED at 0047, patient's total down time was stated to have been 10x minutes, with last epinephrine given at 0045. Care was resumed by ED staff. Further history cannot be obtained, due to patient's condition and absence of additional historians at time of arrival. Patient admitted to the ICU in critical condition. Discussions done with family members including his and sons by myself and neurologist about his cardiac her chest and anoxic brain injury. The etiology of his cardiac arrest he is unclear. Patient noted to have fixed dilated pupils with a significant anoxic brain injury on CT scan. Patient did not have any neurological function. Therefore family including his decided to do compassionate extubation and terminal wean. This was done and soon after compassionate extubation patient comfortably in the ICU. Family is at bedside during his . Operations or Procedures EXAM: LIMITED Two-dimensional and M-mode echocardiogram with Doppler and color Doppler. Blood Pressure: 156/58 mmHg INDICATION Cardiac Arrest Elevated Trops RISK FACTORS Height: 5' 10", Weight: 279 DIMENSIONS LVDd 4.6 (3.8-5.7cm) LA (2D) 4.9 (1.9-4.0cm) Aortic Root (2.0- 3.7cm) LVDs 3.5 (2.5-4.0cm) LA (MM) (1.9-4.0cm) Aortic Cusp Exc (1.5- 2.0cm) EF (%) 47.0 (55-70%) Rt. Atrium 5.0 (1.9-4.0cm) Asc. Aorta cm IVSd 1.1 (0.7-1.1cm) RV (D) (1.8-2.4cm) PWd 1.1 (0.7-1.1cm) Mitral Valve Mitral Mitral Stenosis E/A ratio 0.0 2D MVA cm2 Aortic Valve Aortic Valve Aortic Stenosis LVOT Diameter 2.4 (1.8-2.4cm) Doppler ALMA ROSA cm2 Tricuspid Valve TR Velocity 2.30m/s RVSP 21mmHg Other Information Quality : Technically Limited Rhythm : Technically limited study due to body habitus,patient position and on vent. Conclusion Atrial fibrillation. Difficult acoustic windows. Limited views. There appears to be concentric LVH. Biatrial enlargement. Valves appear to be structurally normal. Left ventricular function is preserved at 55%. Mildly diminished RV function. No pericardial effusion masses or vegetations discernible. Doppler is suboptimal. SIGNED BY: CHEPE SOLITARIO Sr., MD SIGNED DATE/TIME: 12/02/24 0956 Final Diagnosis/Problems List Cardiac arrest at home Problems List: (1) Anoxic brain damage (2) Cardiac arrest (3) Acute respiratory failure with hypercapnia (4) AAA (abdominal aortic aneurysm) Discharge Disposition: at [facility],NIGHAT RIDDLE Dec 03, 2024 13:36
--- NOTE | 2024-12-03 23:14 | DVHPN2 ---
Progress Note - Dictate Date Seen: Dec 03, 2024 Medical Necessity Reason Pt with a Central, PICC or Fol: Yes The following are medically ne: Keita Catheter Reason for keita catheter: Strict I&O Subjective Patient seen and examined at bedside. intubated on mechanical ventilator. Overnight events reviewed. vital signs Vital Sign Date Time Temp Pulse Resp B/P (MAP) Pulse Ox O2 Delivery O2 Flow Rate FiO2 12/03/24 11:52 94 25 122/81 12/03/24 11:38 60 12/03/24 11:30 99.9 92 211.8 12/03/24 08:00 Mechanical Ventilator+ Total Intake and Output 12/02/24 12/02/24 12/03/24 15:00 23:00 07:00 Intake Total 833.28 ml 1408.28 ml 1508.28 ml Output Total 0 ml 1700 ml 2900 ml Balance 833.28 ml -291.72 ml -1391.72 ml objective Gen.: Patient lying in bed in medical ICU. intubated on mechanical ventilator. Head: Normocephalic, atraumatic. Eyes: PERRLA. Ears: Normal external anatomy. Throat: Endotracheal tube and orogastric tube in place. Neck: Supple, trachea midline. Chest: Transmitted breath sounds bilaterally. Decreased air entry bilaterally. No wheezing. Bibasilar crackles. Cardiovascular: Positive S1, positive S2. Regular rate and rhythm. Abdomen: Positive bowel sounds in all 4 quadrants. Soft, nontender, nondistended. : Keita in place. Normal external genitalia. Rectal: Deferred. Skin: Warm, dry. Intact. Extremities: 2+ radial pulses bilaterally. No lower extremity edema. Neuro: Off sedation laboratory and microbiology Laboratory Tests 12/03/24 02:57 Test 12/03/24 02:57 Range/Units Serum Glucose 198 H 74-106 mg/dL Assessment/Plan Impression: Acute hypoxic respiratory failure Acute hypercarbic respiratory failure On mechanical ventilator Possible fungal pneumonia Elevated troponin Lactic acidosis S/p cardiac arrest with ROSC Events: Remains on vent support On AC mode; RR 28, VT 550, PEEP 8, FiO2 60% Off Versed ABG reviewed, compensated. Poor prognosis with low chance of meaningful recovery Family agreed for compassionate extubation. Pain control Avoid oversedation Ativan IV PRN. Labs and imaging reviewed. Addendum: Patient subsequently underwent compassionate extubation. I was informed by RN that patient -Time of : 12:30 pm. Plan: s/p intubation on mechanical ventilator. CXR image and report reviewed. Devices in place. Hazy bilateral opacities. No pneumothorax. No pleural effusion. On AC mode; RR 28, VT 550, PEEP 8, FiO2 60% Titrate FIO2 to keep O2 saturation above 90%. VAP bundle. Daily ABG and CXR while intubated Off sedation Continue bronchodilators. IV steroids Continue antibiotics. F/u cultures. Pressors as necessary for hemodynamic support Titrate to keep mean arterial pressure greater than 65 mmHg. Pain control Avoid oversedation Diflucan given tree-in-bud opacities Cardiology recommendations appreciated Monitor hemoglobin Monitor renal function Monitor electrolytes. Supplement as necessary. Monitor ins and outs. Maintain euvolemia. GI prophylaxis- Protonix BID DVT prophylaxis. Prognosis: Poor given patient's multiple co-morbidities. Condition: Critical Rest of plan per hospitalist and other consultants. A total of 35 minutes of critical care time was spent reviewing the patient record, examining the patient, making a diagnostic and therapeutic plan, discussing this plan with the medical personnel, following up on diagnostic studies and following the patient for clinical stability excluding any and all procedures. At least 50% of this time was spent in direct, [id number] contact. Thank you, Dr. Saenz, for allowing me to participate in this patient's care. Further recommendations will depend on the patient's clinical course. Please do not hesitate to contact me if you have any questions or concerns. This medical document was created using an electronic medical record system with [employer] computerized dictation system. Although these documentations are being carefully reviewed, there may still be some phonetic and typographical changes. The errors are purely typographical, due to imperfection on the software program, and do not reflect any compromise in the patient's medical care. Dietary Evaluation Review Comments: 1. TPN per pharmacy if NPO>7 days 2. Supplement clinimix @41ml/hr with TF-Glucerna @50ml/hr (72 gPro 1440 kcal) if EN/GI accessible. the total combo will provide 76% Pro of his needs, and energy at 16 kcal/kg ABW 3. PO CCHO-60 Cardiac diet, if off vent and pass speech eval. Expected Outcomes/Goals: Off vent, advanced to 2 GNa CCHO-60 low fat low chol cardiac diet. Plan discussed with: Other (RN) DEXTER BEST MD Dec 03, 2024 23:14
--- NOTE | 2024-12-03 23:14 | DVHPN2 ---
Consult Progress Note Subjective Other Systems: Patient was seen and evaluated in follow up in the ICU. Patient is off sedation, no cough/gag reflex and pupils are fixed. Patient was termianlly weaned this afternoon. WBC 14.2, NA 146, K 3.1, CL 108, GLUC 228. Objective vital signs Vital Sign Date Time Temp Pulse Resp B/P (MAP) Pulse Ox O2 Delivery O2 Flow Rate FiO2 12/03/24 11:52 94 25 122/81 12/03/24 11:38 60 12/03/24 11:30 99.9 92 211.8 12/03/24 08:00 Mechanical Ventilator+ Total Intake and Output 12/02/24 12/02/24 12/03/24 15:00 23:00 07:00 Intake Total 833.28 ml 1408.28 ml 1508.28 ml Output Total 0 ml 1700 ml 2900 ml Balance 833.28 ml -291.72 ml -1391.72 ml Examination: GENERAL:Abnormal, LUNGS:Abnormal, CVS:Normal, NEURO:Abnormal (off sedation, fixed pupils, no cough or gag reflex) laboratory and microbiology Laboratory Tests 12/03/24 02:57 Test 12/03/24 02:57 Range/Units Serum Glucose 198 H 74-106 mg/dL Problem List/Assessment/Plan Problem List/Assessment/Plan NSTEMI, possibly type 1. Sepsis with pneumonia. Cardiopulmonary arrest with ROSC. Atrial fibrillation with rapid ventricular rate. Highly suspected anoxic brain injury. Upper GI bleed. Infrarenal AAA measuring 5 cm. Left-sided pneumothorax. Obesity. Plan/Recommendation Continued all current supportive medical care. Patient has been seen by Felicita Hightower NP on my behalf. We have and I discussed the plan with the patient. Transthoracic echocardiogram reveals an EF of 55%. The patient remains in atrial fibrillation on automobile rental clerk. The patient underwent a repeat Head CT on 12/02/24 which revealed: Loss of oh- white matter differentiation, consistent with diffuse anoxic brain injury. Patient's pupils are fixed bilaterally and patient has no cough or gag reflex. [id number] VASc score: 3 points. Continue amiodarone drip. Avoid anticoagulation therapy at this time given GI bleed. He is highly suspected to having neurological insult. Given this suspicion, he is not a candidate for any invasive cardiac procedures. Per RN, patient's family has decided to go forward with a terminal wean today. Additional plan as per the hospital course. Plan discussed with: Other Dietary Evaluation Review Comments: 1. TPN per pharmacy if NPO>7 days 2. Supplement clinimix @41ml/hr with TF-Glucerna @50ml/hr (72 gPro 1440 kcal) if EN/GI accessible. the total combo will provide 76% Pro of his needs, and energy at 16 kcal/kg ABW 3. PO CCHO-60 Cardiac diet, if off vent and pass speech eval. Expected Outcomes/Goals: Off vent, advanced to 2 GNa CCHO-60 low fat low chol cardiac diet. Date of Service: Dec 03, 2024 Billing Provider: AMY RICO MD Cardiology Common Codes: [id number] CARE 30-74 MIN AMY RICO MD Dec 03, 2024 21:53
== END 2024-12-03 16:29 | DRG 871 ==
LOC: ER 00:48 → EDBD 00:48 → TELE 05:56 → ICU WEST 12-02 22:31
PROVIDERS: ADMIT Nurse Practitioner Family; ATTEND Nurse Practitioner Family
PROC: 5A1945Z Respiratory Ventilation, 24-96 Consecutive Hours (ICD-10-PCS; principal; 2024-12-01)
PROC: 0BH17EZ Insertion of Endotracheal Airway into Trachea, Via Natural or Artificial Opening (ICD-10-PCS; 2024-12-01)
PROC: 5A12012 Performance of Cardiac Output, Single, Manual (ICD-10-PCS; 2024-12-01)
DX: A41.9 Sepsis, unspecified organism (principal); G93.41 Metabolic encephalopathy; J96.02 Acute respiratory failure with hypercapnia; J96.01 Acute respiratory failure with hypoxia; J15.69 Pneumonia due to other Gram-negative bacteria; J15.9 Unspecified bacterial pneumonia; E87.29 Other acidosis; K92.2 Gastrointestinal hemorrhage, unspecified; J93.9 Pneumothorax, unspecified; J44.1 Chronic obstructive pulmonary disease with (acute) exacerbation; G93.1 Anoxic brain damage, not elsewhere classified; J44.0 Chronic obstructive pulmonary disease with (acute) lower respiratory infection; Z99.11 Dependence on respirator [ventilator] status; I46.9 Cardiac arrest, cause unspecified; I48.91 Unspecified atrial fibrillation; I71.43 Infrarenal abdominal aortic aneurysm, without rupture; E66.01 Morbid (severe) obesity due to excess calories; I45.10 Unspecified right bundle-branch block; H57.04 Mydriasis; R00.1 Bradycardia, unspecified; I11.0 Hypertensive heart disease with heart failure; I50.9 Heart failure, unspecified; E78.5 Hyperlipidemia, unspecified; E11.9 Type 2 diabetes mellitus without complications; Z79.84 Long term (current) use of oral hypoglycemic drugs; Z79.01 Long term (current) use of anticoagulants; Z68.32 Body mass index [BMI] 32.0-32.9, adult
CPT/HCPCS: 36415; 36600; 70450; 71045; 71260; 74177; 80048; 80053; 80202; 81001; 82805; 82962; 83605; 83735; 83880; 84484; 85014; 85018; 85025; 85610; 87040; 87070; 87081; 87086; 87205; 92950; 93005; 93306; 94003; 94640; 96365; 96375; 99291; G0378; J0131; J1450; J1815; J2470; J2543; J3480; J7042